=== PATIENT | male | born 1960 | race Caucasian/White ===

== ENCOUNTER 2020-05-27 08:20 | Day surgery (SDC) | payer OTHER ==
[~2020-05-27] VITALS: Ht 188 cm; Wt 95.5 kg
[~2020-05-27 08:20] MED LIST: ACETAMINOPHEN325 M1 PO; CRESTOR10 MG PO; CYCLOBENZAPRINE10 MG PO; DAILY VITAMIN1 EAC2 PO; NAPROSYN500 MG PO; PRINIVIL20 MG PO
[2020-05-27] MEDS ORDERED: DAILY MULTIPLE1 EACH PO (08:52)
[2020-05-27] MEDS ORDERED: TURMERIC 500 M1 EACH PO (08:53)
--- NOTE | 2020-05-27 12:53 | NUR ---
05/27/20 Rhonda3 Emily Prabhakar 1250- PT ARRIVES TO PACU NONAROUSABLE TO NOXIOUS STIMULI WITH AN OPA IN PLACE. PT NEEDING A JAW LIFT TO CLEAR SNORING. RESP EVEN AND UNLABORED. OXYGEN SAT HIGH 90'S TO 100% ON 10L VIA MASK.
--- NOTE | 2020-05-27 13:41 | NUR ---
1330: PATIENT BACK IN DAY SURGERY ROOM FROM PACU. DENIES PAIN. DENIES NAUSEA. LEFT ABDOMINAL DRESSING CDI. IV SITE WNL. SCDs ON. TOLERATING WATER. DECLINES SOMETHING TO EAT AT THIS TIME. AT BEDSIDE. CALL LIGHT WITHIN REACH.
[2020-05-27] MEDS ORDERED: HYDROCODON-ACE1 EAC8 PO (13:55)
--- NOTE | 2020-05-27 14:33 | NUR ---
PATIENT TOLERATED APPLESUACE. VS CHECKED. DISCHARGE INSTRUCTIONS GIVEN TO PATIENT AND . PATIENT ASSISTED OOB AND TO WALK ABOUT ROOM. GAIT STEADY. PATIENT GETTING DRESSED WITH HELP FROM .
--- NOTE | 2020-05-27 14:52 | NUR ---
1437: STAND BY ASSIST WITH PATIENT TO BATHROOM. VOID WITHOUT DIFFICULTY. GAIT STAEDY TO AND FROM BATHROOM. IV DC'D WNL. TIP INTACT. DRESSING APPLIED. 1443: PATIENT DISCHARGED TO HOME WITH VIA WHEELCHAIR.
--- NOTE | 2020-05-28 07:45 | OR ---
[facility] [address], [place] [address] Signed DATE OF OPERATION: 05/27/2020 SURGEON: Mayo Christy MD PREOPERATIVE DIAGNOSIS: Incarcerated left spigelian hernia (8 mm). POSTOPERATIVE DIAGNOSIS: Incarcerated left spigelian hernia (8 mm). PROCEDURE: Primary left spigelian herniorrhaphy with intraabdominal Ventralex mesh (4.3 cm). ESTIMATED BLOOD LOSS: None. INDICATIONS: Alexi is a 59-year-old gentleman, I have known for many years. He actually came to me previously for groin hernia. On this occasion, he has had bulging in the left abdominal wall. It is just lateral to his rectus sheath. 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 He said it has been bothering up, he wanted to have it evaluated. Ultrasound and the CT scan confirmed the hernia. The fascial defects around 8 mm in diameter. The herniated fat is around 55 mm. I had met with Alexi in the office and I explained to him the nature of the spigelian hernia. I reviewed with him the difference between a primary suture repair and a mesh repair. He understands there is risk including, but not limited to bleeding, infection, scarring, change in contour of the skin, damage to bowel, infection of mesh requiring removal, recurrent hernias, and chronic pain. He had expressed understanding and wished to proceed. DESCRIPTION OF PROCEDURE: I met with Alexi and his in our preop area. We could see and feel the subcutaneous bulge. We marked that appropriately on the left abdominal wall. After this, Alexi was taken into the operating room and placed in the supine position under general endotracheal tube anesthesia. Appropriate padding and monitoring were placed. He had been given preoperative antibiotics along with subcutaneous heparin. SCDs were utilized. He was prepped and draped in the usual sterile fashion. We made a standard transverse incision overlying the area. It was carried down through the tissues bluntly and with the cautery. As it was common with spigelian hernias, they never come all the way through the abdominal wall. We opened the external oblique in the direction of the muscle fibers using a muscle-splitting technique as it would for an appendectomy and Electronically Signed By: MAYO CHRISTY MD 05/28/20 0745 PATIENT NAME: ALEXI MART OPERATIVE REPORT DATE OF : 64 REPORT #: [id number] PHYSICIAN: MAYO CHRISTY MD PCP: ROD VANESSA MD REPORT IS CONFIDENTIAL AND NOT TO BE RELEASED WITHOUT AUTHORIZATION [facility] [address], [place] [address] Signed underneath it was the herniated fat. We worked our way down to the neck of the hernia as it went through the fascial defect of the abdominal wall. The hernia sac and the fat were excised and passed off the field. Again, it is right on the lateral edge of the rectus sheath consistent with his spigelian hernia. The fascial defect was around 8 mm in diameter. Consequently, we chose our 4.3 cm round Ventralex mesh and we placed inside the abdominal wall and brought up, flushed against the posterior abdominal wall. We could see the omentum in the sigmoid colon underneath as we worked. We closed the fascial defect transversely with a running #1 Prolene suture. Several passes of the suture went through the tab on the mesh to help hold it in place. The tab was then cut flush with the abdominal wall. The abdominal wall was then infiltrated local anesthetic including subcutaneous tissues. The wound was irrigated and suctioned out until clear. We closed the external oblique with a running 2-0 PDS suture. We closed Yeyo's fascia with a running 4-0 Monocryl suture. The dermis was reapproximated with interrupted 3-0 subcuticular Monocryl sutures. The skin edges were reapproximated with a running 5-0 fast absorbing plain gut suture. Dry gauze and tape were then applied. Alexi was awakened from his anesthesia, extubated in the OR, and taken to recovery room in stable condition. Mayo Christy MD ALB/MODL /[id number] cc: MD Mayo Rivera MD Copies: ROD VANESSA MD, ANDREW L MD ~ Electronically Signed By: MAYO CHRISTY MD 05/28/20 0745 PATIENT NAME: ALEXI MART OPERATIVE REPORT DATE OF : 64 REPORT #: [id number] PHYSICIAN: MAYO CHRISTY MD PCP: ROD VANESSA MD REPORT IS CONFIDENTIAL AND NOT TO BE RELEASED WITHOUT AUTHORIZATION
== END 2020-05-27 14:43 | disposition home or self-care (01) ==
LOC: DS 08:20
PROVIDERS: ATTEND Colon & Rectal Surgery
PROC: 0WUF0JZ Supplement Abdominal Wall with Synthetic Substitute, Open Approach (ICD-10-PCS; principal; 2020-05-27 09:00)
DX: K43.6 Other and unspecified ventral hernia with obstruction, without gangrene (principal); E78.5 Hyperlipidemia, unspecified
CPT/HCPCS: 00752; C1781; J0330; J0690; J1100; J1644; J1885; J2250; J2405; J2704; J2765; J3010; J7121

== ENCOUNTER 2022-08-28 13:31 | Emergency (ER) | payer OTHER ==
[~2022-08-28] VITALS: Ht 188 cm; Wt 95.2 kg
[~2022-08-28 13:31] MED LIST changes: +DAILY MULTIPLE1 EACH PO; +HYDROCODON-ACE1 EAC8 PO; +TURMERIC 500 M1 EACH PO
[2022-08-28 15:02] VITALS: BP 133/81
== END 2022-08-28 15:02 | disposition home or self-care (01) ==
LOC: ED 13:31
DX: S61.012A Laceration without foreign body of left thumb without damage to nail, initial encounter (principal); W29.8XXA Contact with other powered hand tools and household machinery, initial encounter; I10 Essential (primary) hypertension; E78.5 Hyperlipidemia, unspecified; Z87.891 Personal history of nicotine dependence; Z79.899 Other long term (current) drug therapy

== ENCOUNTER 2023-03-28 11:21 | Emergency (ER) | payer OTHER ==
[~2023-03-28] VITALS: Ht 188 cm; Wt 95.2 kg
[2023-03-28 12:27] VITALS: BP 110/77
== END 2023-03-28 12:27 | disposition home or self-care (01) ==
LOC: ED 11:21
DX: S61.311A Laceration without foreign body of left index finger with damage to nail, initial encounter (principal); W31.2XXA Contact with powered woodworking and forming machines, initial encounter; I10 Essential (primary) hypertension; E78.5 Hyperlipidemia, unspecified; Z87.891 Personal history of nicotine dependence; Z79.899 Other long term (current) drug therapy
CPT/HCPCS: 64450; 73140; 99283-25

== ENCOUNTER 2023-10-29 15:54 | Emergency (ER) | payer OTHER ==
[~2023-10-29] VITALS: Ht 188 cm; Wt 96.8 kg
--- NOTE | ~2023-10-29 | EKG ---
[facility] [address] [facility] [place] [facility] [place], [place] [address] Draft EK completed, results pending confirmation PATIENT NAME: ALEXI MART Electrocardiogram DATE OF : 64 PHYSICIAN: PRELIMINARY REPORT #: [id number] REPORT IS CONFIDENTIAL AND NOT TO BE RELEASED WITHOUT AUTHORIZATION
[2023-10-29] MEDS ORDERED: ondansetron HCL 4 MG/2 ML VIAL IV ONE (16:30)
[2023-10-29 16:51] LABS: BASOPHILS 0.3 % (0-2); HEMATOCRIT 43.2 % (35.0-50.0); HEMOGLOBIN 14.9 g/dL (12.0-18.0); LYMPHOCYTES 18.9 % (24-44); MCH 28.6 (27-36); MCHC 34.5 g/dl (30-36); MONOCYTES 6.5 % (0-12); NEUTROPHILS 73.3 % (39-80); PLATELET COUNT 226 K/uL (140-440); RDW 13.4 (10.5-15.0)
[2023-10-29 17:07] LABS: ALBUMIN 3.6 g/dL (3.4-5.0); ALBUMIN/GLOBULIN RATIO 1.16 (1.1-2.4); ANION GAP 8.5 (7-21); BILIRUBIN, TOTAL 2.2 ng/dL (0.2-1.0); BUN/CREATININE RATIO 14.28 (6.0-28.6); CALCIUM 8.3 mg/dL (8.5-10.1); CREATININE, SERUM 1.12 mg/dL (0.70-1.30); POTASSIUM 3.5 mmol/L (3.5-5.1); PROTEIN, TOTAL 6.7 g/dL (6.4-8.2)
[2023-10-29 17:25] LABS: BILIRUBIN, URINE NEGATIVE (negative); BLOOD/HGB, URINE NEGATIVE (Negative); KETONE, URINE NEGATIVE (Negative); LEUK ESTERASE, URINE NEGATIVE (negative); NITRITE, URINE NEGATIVE (negative)
[2023-10-29 19:33] VITALS: BP 124/72
== END 2023-10-29 19:38 | disposition home or self-care (01) ==
LOC: ED 15:54
PROVIDERS: Emergency Medicine
DX: R10.13 Epigastric pain (principal); I10 Essential (primary) hypertension; E78.5 Hyperlipidemia, unspecified; Z87.891 Personal history of nicotine dependence; Z79.899 Other long term (current) drug therapy
CPT/HCPCS: 36415; 74177; 80053; 81003; 83690; 84484; 85025; 93005; 93010; Q9967

== ENCOUNTER 2023-11-02 20:13 | Inpatient (IN) | payer OTHER ==
[~2023-11-02] VITALS: Ht 188 cm; Wt 93.2 kg
--- OUTSIDE RECORDS SUMMARY | 2023-11-02 20:19 | XMS ---
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 ELorena VISIT COUNT (12 MO.) 3 [facility] TOTAL 3 NOTE: Visits indicate total known visits. ED/UCC VISIT TRACKING (12 MO.) 11/02/2023 20:13 [facility] TYPE: Emergency COMPLAINT: - ABD PAIN 10/29/2023 15:54 [facility] [place] TYPE: Emergency COMPLAINT: - ABDOMINAL PAIN/SOB DIAGNOSES: - Epigastric pain - Essential (primary) hypertension - Hyperlipidemia, unspecified - Other jail (current) drug therapy - Personal history of nicotine dependence 03/28/2023 11:22 [facility] [place] TYPE: Emergency COMPLAINT: - L INDEX FINGER LACERATION DIAGNOSES: - Contact with powered woodworking and forming machines, initial encounter - Essential (primary) hypertension - Hyperlipidemia, unspecified - Laceration without foreign body of left index finger with damage to nail, initial encounter - Laceration without foreign body of left index finger without damage to nail, initial encounter - Other rodent exterminator (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
[2023-11-02] MEDS ORDERED: FAMOTIDINE 20 MG/ 2 ML VIAL IV ONE (21:00)
[2023-11-02] MEDS ORDERED: KETOROLAC TROMETHAMINE 30 MG/ML VIAL IV ONE (21:00)
[2023-11-02 21:01] LABS: BASOPHILS 0.2 % (0-2); EOSINOPHILS 1.6 % (0-6); HEMOGLOBIN 15.1 g/dL (12.0-18.0); LYMPHOCYTES 8.8 % (24-44); MCH 28.7 (27-36); MCHC 34.3 g/dl (30-36); MCV 83.8 fl (81-99); MONOCYTES 8.5 % (0-12); NEUTROPHILS 80.9 % (39-80); PLATELET COUNT 195 K/uL (140-440); RBC 5.24 M/ul (4.3-5.7); RDW 13.4 (10.5-15.0)
[2023-11-02 21:14] LABS: ALBUMIN 3.2 g/dL (3.4-5.0); ALBUMIN/GLOBULIN RATIO 0.86 (1.1-2.4); ALKALINE PHOSPHATASE 438 U/L (46-116); ALT (SGPT) 367 U/L (14-59); ANION GAP 12.4 (7-21); AST (SGOT) 227 U/L (15-37); BILIRUBIN, TOTAL 1.9 ng/dL (0.2-1.0); BUN/CREATININE RATIO 8.18 (6.0-28.6); CALCIUM 9.2 mg/dL (8.5-10.1); CARBON DIOXIDE 27 mmol/L (21-32); CHLORIDE 101 mmol/L (98-107); GLOMERULAR FILTRATION RATE,EST 76 mL/min (>60); POTASSIUM 3.4 mmol/L (3.5-5.1); PROTEIN, TOTAL 6.9 g/dL (6.4-8.2); UREA NITROGEN 9 mg/dL (7-18)
[2023-11-02 22:13] LABS: BILIRUBIN, URINE NEGATIVE (negative); BLOOD/HGB, URINE TRACE-I (Negative); KETONE, URINE NEGATIVE (Negative); LEUK ESTERASE, URINE NEGATIVE (negative); NITRITE, URINE NEGATIVE (negative)
[2023-11-02 22:15] LABS: BACTERIA, URINE RARE /hpf (negative); CASTS, URINE NONE SEEN \\lpf; CRYSTALS, URINE NONE SEEN (0-1+); EPITHELIAL CELLS, URINE SQUAMOUS 1+ /lpf (0-1+); REFLEX CULTURE, URINE No (No)
[2023-11-02 22:16] LABS: COLLECTION TYPE, URINE CLEAN CATCH
[2023-11-02] MEDS ORDERED: DEXTROSE 5% 100 ML IV ONE (22:27)
[2023-11-02] MEDS ORDERED: ondansetron HCL 4 MG/2 ML VIAL IV PRN (22:30)
[2023-11-02] MEDS ORDERED: KETOROLAC TROMETHAMINE 30 MG/ML VIAL IV PRN (22:30)
[2023-11-02] MEDS ORDERED: MORPHINE SULFATE 10 MG/ML VIAL IV PRN (22:30)
[2023-11-02] MEDS ORDERED: PIPERACILLIN/TAZOBACTAM 3.375 GM in DEXTROSE 5% 100 ML IV ONE (22:30)
[2023-11-02] MEDS ORDERED: LACTATED RINGER'S 1,000 ML IV SCH (22:30)
[2023-11-02] MEDS ORDERED: LACTATED RINGER'S 1,000 ML IV ONE (23:15)
[2023-11-02 23:30] LABS: LACTIC ACID, BLOOD 0.6 mmol/L (0.4-2.0)
[2023-11-03] VITALS (11 sets, daily range): BP systolic 111–144; BP diastolic 52–72
--- NOTE | 2023-11-03 00:43 | NUR ---
pt arrived to ms floor from ed, ambulated self to bathroom and voided unmeasured amount and back in bed. admission completed, at bedside and preparing to go home following admission. primary rn michelle at bedside, pt oriented to poc, call light in reach.
--- NOTE | 2023-11-03 01:40 | NUR ---
Pt admitted to room 112 at 0043 from ED via stretcher, transferred self and walked to [facility], voided, back to bed. cooperative with admit quetions, vitals and assessments. NPO for probable am surgery, abd soft, tender MILAN, no c/o pain or n/v at thist time. Pt wearing contacts stated he is legally blind once he takes contacts off procedure and hosp routine explained, stated understanding. pleasant and cooperative
--- NOTE | 2023-11-03 03:02 | NUR ---
Resting, no s/sx distress, on room air. IVF infusing. NPO
[2023-11-03 05:16] LABS: HEMOGLOBIN 14.1 g/dL (12.0-18.0); MCH 28.3 (27-36); RDW 13.6 (10.5-15.0)
[2023-11-03 05:19] LABS: BASOPHILS 0.1 % (0-2); EOSINOPHILS 1.6 % (0-6); HEMATOCRIT 41.4 % (35.0-50.0); LYMPHOCYTES 9.3 % (24-44); MCV 83.5 fl (81-99); MONOCYTES 11.2 % (0-12); NEUTROPHILS 77.8 % (39-80); PLATELET COUNT 188 K/uL (140-440); RBC 4.96 M/ul (4.3-5.7)
[2023-11-03 05:31] LABS: ALBUMIN 2.9 g/dL (3.4-5.0); ALBUMIN/GLOBULIN RATIO 0.85 (1.1-2.4); ANION GAP 12.8 (7-21); BUN/CREATININE RATIO 9.25 (6.0-28.6); CALCIUM 8.7 mg/dL (8.5-10.1); CREATININE, SERUM 1.08 mg/dL (0.70-1.30); POTASSIUM 3.8 mmol/L (3.5-5.1); PROTEIN, TOTAL 6.3 g/dL (6.4-8.2)
[2023-11-03] MEDS ORDERED: PIPERACILLIN/TAZOBACTAM 3.375 GM VIAL ONE (05:33)
--- NOTE | 2023-11-03 05:49 | NUR ---
Awake, was cooperative with vitals and assessment. IVF infusing RW, c/o epigastric pain, medicated with Toradol 30mg IV, repositions self in bed, up to BRp earlier and voided QS, NPO, tolerating well.
[2023-11-03] MEDS ORDERED: PIPERACILLIN/TAZOBACTAM 3.375 GM in DEXTROSE 5% 100 ML IV SCH (06:00)
--- NOTE | 2023-11-03 07:56 | NUR ---
Pt report received from DAMON Park at 0710 hours. Pt is resting supine in bed, HOB elevated, side rails up x2, call light in reach. Pt's breathing is regular, even, and non-labored, his cheeks appear flushed and he seems to be asleep. Pt awakens easily to voice, denies needs at this time. States that he was cold last night so they turned the heat up, but now he's too warm and requests the heat be turned down some. This was done. Advised pt to use his call light if he has any needs before I return for assessment.
[2023-11-03] MEDS ORDERED: FAMOTIDINE 20 MG/ 2 ML VIAL IV SCH (09:00)
--- NOTE | 2023-11-03 10:22 | NUR ---
Dr. Mayen in with pt at about 1000 hours to discuss his findings after reviewing his chart. Received verbal orders from Dr. Mayen and was requested to input them: instruct pt to use incentive spirometer 10x q1h while awake to prevent atelectasis. Use SCDs bilateral LE while in bed. Ambulate often. Clear liquid diet, low fat, advance diet as tolerated to full liquid low fat. Continue fluids at ordered rate (LR @ 85/hr), continue pain management orders, continue pepcid and zosyn as ordered, patient may shower if desired. Verbal orders repeated back and confirmed before entering.
--- NOTE | 2023-11-03 11:13 | NUR ---
SCD'S placed on pt's BLE and turned on. IS given to pt and pt was instructed on its use and when/how often to use it, pt performed return demonstration. Discussed updated orders from Dr. Mayen with pt who verbalized understanding and understands to use the call light when he wants to get up to walk, or to shower. Call light in reach. Ice water provided to patient.
[2023-11-03] MEDS ORDERED: LISINOPRIL10 MG PO (14:44)
[2023-11-03] MEDS ORDERED: ROSUVASTATIN CA10 MG PO (14:45)
--- NOTE | 2023-11-03 16:33 | NUR ---
In with pt for hourly rounds. Pt is awake, sitting up in bed, using his laptop. When asked how his pain is, he states that he is starting to feel some rumbling in his tummy, like nausea. He accepted the offer for zofran. He stated that he hasn't had any increased pain after having had low fat clear liquids for lunch and is looking forward to advancing his diet to low fat full liquid diet for dinner, but he did start having a little bit of "tummy rumbling" and later stated it was like he was hungry but not really. Pt denies further needs at this time. Call light in reach, side rails up x2, SCDs on.
--- NOTE | 2023-11-03 18:43 | NUR ---
Pt ambulating hallway, unassisted.
--- NOTE | 2023-11-03 19:48 | NUR ---
Up for showering. no c/o pain, independent in room
--- NOTE | 2023-11-03 20:10 | NUR ---
CALL LIGHT ANSWERED. PATIENT DONE SHOWER. BATHROOM WIPED DRY. BED LINEN CHANGED. PATIENT IS INDEPENDENT SITTING ON THE COUCH BY THE WINDOW. PATIENT IS ON THE PHONE TALKING.
--- NOTE | 2023-11-03 20:50 | NUR ---
ambulated in room after shower, denies c/o abd pain, on room air, coop with assessments and vitals. ivf infusing RW, SL LW patent.
[2023-11-04] VITALS (10 sets, daily range): BP systolic 114–135; BP diastolic 57–75
--- NOTE | 2023-11-04 02:39 | NUR ---
Resting, eyes closed, no s/sx distress, IVF infusing.
--- NOTE | 2023-11-04 05:56 | NUR ---
Pt awake, up to brp w/o assist, voided QS. IVF infusing, no c/o adverse reaction to IV abx. toleraing liquids well, no n/v, no c/o abd pain at all this shift. turns and repositions self in bed
--- NOTE | 2023-11-04 07:05 | NUR ---
REPORT RECEIVED FROM ACCT EXEC RN LARRY. PATIENT IS SITTING UPRIGHT IN BED AND ON THEIR COMPUTER. PATIENT STATED NO NEEDS AT THIS TIME, CALL LIGHT AND PERSONAL BELONGINGS ARE WITHIN REACH.
--- NOTE | 2023-11-04 07:48 | NUR ---
Board has been updated and call light has been placed within reach. No requests from patient at this [facility]
--- NOTE | 2023-11-04 09:30 | NUR ---
0900 MEDICATIONS ADMINISTERED PER THE EMAR. FULL ASSESSMENT COMPLETE AND DOCUMENTED IN THE CHART. PATIENT IS AT THE BEDSIDE. PATIENT IS ALERT AND ORIENTED TIMES FOUR. CARDIAC WITH NORMAL S1 AND S2 ON AUSCULTATION. RADIAL PULSES ARE STRONG BILATERALLY. SENSATION INTACT WITH NO COMPLAINTS OF NUMBNESS AND TINGLING. SCABS NOTED ON BILATERAL KNEES. BRUISES AND SCARS NOTED ON THE BILATERAL LOWER EXTREMITIES. LUNG SOUNDS ARE CLEAR IN ALL LUNG KIRAN BILATERALLY AND THE PATIENT IS ON ROOM AIR. BOWEL TONES ARE ACTIVE IN ALL FOUR QUADRANTS. PATIENT IS ON A FULL LIQUID AND LOW FAT DIET. IV SITE IN THE RIGHT FOREARM IS CLEAN, DRY, AND INTACT. IV FLUSHED WITH 10 ML NORMAL SALINE. IV IN THE LEFT FOREARM IS CLEAN, DRY, AND INTACT. IV IN THE LEFT FOREARM FLUSHED WITH 20 ML NORMAL SALINE. PATIENT LAST BOWEL MOVEMENT WAS 11/02/23. PATIENT STATED NO FURTHER NEEDS AT THIS TIME. CALL LIGHT AND PERSONAL BELONGINGS ARE WITHIN REACH.
--- NOTE | 2023-11-04 09:49 | NUR ---
PATIENT ALERT AND ORIENTED. SPOUSE AT BEDSIDE. VERIFIED DEMOGRAPHICS. PATIENT LIVES WITH IN SINGLE LEVEL HOME, 2 STEPS TO GET INSIDE. DENIES ANY DME. CONTINUES WITH ABILITY TO DRIVE SELF. 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 IS ALSO ABLE TO ASSIST WITH TRANSPORTATION IF NEEDED. PATIENT DENIES FINANCIAL ISSUES REGARDING UTILITES, FOOD OR MEDICATIONS. IS CONCERNED ABOUT RECORDS BEING SENT TO DR. ARELLANO. REQUESTS RECORDS BE SENT TO DR. [place]LLANO AT [place]. PATIENT AND PLAN ON HIS RETURN HOME WHEN IA'D.
--- NOTE | 2023-11-04 10:19 | NUR ---
PATIENT IS SITTING UPRIGHT IN THE BED AND IS ON THEIR COMPUTER. PATIENT IS AT THE BEDSIDE. PATIENT AND HIS STATED NO FURTHER NEEDS AT THIS TIME. CALL LIGHT AND PERSONAL BELONGINGS ARE WITHIN REACH.
--- NOTE | 2023-11-04 11:22 | NUR ---
PATIENT IS SITTING UPRIGHT IN BED AND TALKING ON THE PHONE. PATIENT WITH HIS AT THE BEDSIDE. CALL LIGHT AND PERSONAL BELONGINGS WITHIN REACH.
--- NOTE | 2023-11-04 11:35 | NUR ---
medications reconciled
--- NOTE | 2023-11-04 12:41 | NUR ---
CRITICAL LAB RECEIVED FROM THE LAB. NOTIFIED AT THIS TIME.
--- NOTE | 2023-11-04 13:10 | NUR ---
PATIENT IS SITTING UPRIGHT IN BED AND SPEAKING WITH A VISITOR. CALL LIGHT AND PERSONAL BELONGINGS ARE WITHIN REACH.
--- NOTE | 2023-11-04 13:27 | NUR ---
VISITED DURING SPIRITUAL CARE ROUNDS. PT INIDICATED ROLFER HAD RECENTLY VISITED SO DID NOT HAVE IMMEDIATE NEEDS. PROVIDED HOSPITALITY, SUPPORTIVE PRESENCE. PT EXPRESSED APPRECIATION FOR VISIT.
--- NOTE | 2023-11-04 13:45 | NUR ---
1400 MEDICATIONS ADMINISTERED PER THE EMAR. PATIENT WITH NO COMPLAINTS OF PAIN AT THIS TIME. LR IS INFUSING AT 85 ML/HR IN THE IV IN THE RIGHT FOREARM. IV DRESSING IN THE RIGHT FOREARM IS CLEAN, DRY, AND INTACT. IV IN THE LEFT FOREARM FLUSHED WITH 20 ML NORMAL SALINE. IV DRESSING IN THE LEFT FOREARM IS CLEAN, DRY, AND INTACT. HAT IN THE TOILET EMPTIED OF 700 ML OF YELLOW URINE. PATIENT REMAINS INDEPENDENT. PATIENT IS SITTING UPRIGHT IN THE CHAIR WITH NO NEEDS AT THIS TIME, CALL LIGHT AND PERSONAL BELONGINGS ARE WITHIN REACH.
[2023-11-04] MEDS ORDERED: CEFAZOLIN SODIUM 2 GM/20 ML SYR IV SCH (14:00)
[2023-11-04] MEDS ORDERED: CEFOXITIN SODIUM 2 GM in DEXTROSE 5% 100 ML IV SCH (14:00)
--- NOTE | 2023-11-04 14:12 | NUR ---
[place] [facility] [place] CRITERIA [facility] OBS TO INPT 11/03/23 @ 1022 ORDER MATCHES REG WILL SEND CLINICAL FOR AUTH REVIEW DISCHARGE TO HOME WHEN STABLE 11/05/23
--- NOTE | 2023-11-04 14:49 | NUR ---
PATIENT IS SITTING UPRIGHT IN THE BED AND ON THEIR PERSONAL COMPUTER. LR IS INFUSING IN THE RIGHT FOREARM AT 85 ML/HR. PATIENT URINAL DUMPED OF 250 ML OF LIGHT YELLOW URINE. PATIENT STATED NO FURTHER NEEDS AT THIS TIME. CALL LIGHT AND PERSONAL BELONGINGS ARE WITHIN REACH.
--- NOTE | 2023-11-04 20:04 | NUR ---
PT AMBULATING IN ROOM, ON ROOM AIR, CLEAR LUNGS, ABD SLIGHT DISTENTION MILAN, HAD SMEAR OF BM. NO EMESIS. IVF INFUSING RFA, IV SL LFA PATENT. IN CHAIR, LEGS ELEVATED, NO C/O ABD PAIN AT THIST HAY
--- NOTE | 2023-11-04 20:50 | NUR ---
PT UP AMBULATING WITH . NO NEEDS, NO SOB NOTED.
--- NOTE | 2023-11-04 22:31 | NUR ---
In bed, awakens easily, no c/o abd pain or n/v. IVF infusing, cooperativ and denies adverse raction to IV abx. tolerating sips of fluids. Independent in room, voidinf QS clear urine
[2023-11-05] VITALS (13 sets, daily range): BP systolic 104–137; BP diastolic 61–75
--- NOTE | 2023-11-05 00:39 | NUR ---
resting, eyes closed, IVF infusing, no s/sx distress, independent in room, voiding QS. turs and repositions self in bed
--- NOTE | 2023-11-05 02:56 | NUR ---
Pt resting, eyes closed, IVF infusing, no c/o or s/sx pain or distress, up to brp, voiding QS, independent inroom.
--- NOTE | 2023-11-05 04:25 | NUR ---
awakes esily, no c/o pain, IVF infusing. abd mild distention, ramiro, had bm's t begining of shift. Independent in room, voiding QS, tolerting full liquid low fat diet, Diet updated to soft low fat
[2023-11-05 05:20] LABS: BASOPHILS 0.3 % (0-2); EOSINOPHILS 4.6 % (0-6); HEMOGLOBIN 13.2 g/dL (12.0-18.0); LYMPHOCYTES 16.1 % (24-44); MCH 28.9 (27-36); MCHC 34.6 g/dl (30-36); MCV 83.4 fl (81-99); MONOCYTES 9.3 % (0-12); NEUTROPHILS 69.7 % (39-80); PLATELET COUNT 205 K/uL (140-440); RBC 4.55 M/ul (4.3-5.7); RDW 13.3 (10.5-15.0)
[2023-11-05 05:35] LABS: ALBUMIN 2.5 g/dL (3.4-5.0); ALBUMIN/GLOBULIN RATIO 0.68 (1.1-2.4); ANION GAP 11.6 (7-21); BILIRUBIN, TOTAL 1.5 ng/dL (0.2-1.0); POTASSIUM 3.6 mmol/L (3.5-5.1); PROTEIN, TOTAL 6.2 g/dL (6.4-8.2)
--- NOTE | 2023-11-05 07:00 | NUR ---
REPORT RECEIVED FROM DIVISION MERCHANDISE MANAGER RN LARRY. PATIENT IS LYING IN BED WITH THE HOB ELEVATED. PATIENT IS LOOKING ON THEIR PHONE. PATIENT REMAINS INDEPENDENT IN THE ROOM. CALL LIGHT AND PERSONAL BELONGINGS ARE WITHIN REACH.
--- NOTE | 2023-11-05 07:46 | NUR ---
Board has been updated and call light has been placed within reach. No request from patient at this time
[2023-11-05] MEDS ORDERED: lisinopriL 10 MG TAB PO SCH (09:00)
--- NOTE | 2023-11-05 09:23 | NUR ---
PT SITTING UP IN BED WITH CALL LIGHT WITHIN REACH. NO REQUESTS AT THIS TIME. ASSESSMENT COMPLETE.
--- NOTE | 2023-11-05 10:12 | NUR ---
PATIENT NOW ON A SOFT, LOW-FAT DIET. I MET WITH HIM TO SEE HOW HE IS DOING. HE HAS BEEN GETTING LIQUIDS WITH SOME FAT-FREE YOGURT ONLY. I CHANGED HIS DIET ORDER IN [employer] TO REPRESENT LOW-FAT, SOFT (LOW-FIBER FOR THE MOST PART). HE IS READY TO EAT SOME SOLID FOOD. PROVIDED HIM A HANDOUT ON FAT RESTRICTED DIET FROM THE NUTRITION CARE MANUAL. EXPLAINED THE APPROPRIATE FOODS THAT HE SHOULD EAT FROM EACH FOOD GROUP. HIS WASN'T HERE BUT HE WILL GIVE HER THE HANDOUT TO TAKE HOME. HE HAS GOOD UNDERSTANDING AND SHOULD DO WELL. MY NAME AND OFFICE # ARE ON THE HANDOUT IN CASE FURTHER QUESTIONS ARISE.
--- NOTE | 2023-11-05 10:34 | NUR ---
VISITED DURING SPIRITUAL CARE ROUNDS. PT IN CONFERENCE WITH DID NOT INTERRUPT. PROVIDED PRAYER.
--- NOTE | 2023-11-05 10:56 | NUR ---
PT SITTING IN BED AND IS ON HIS COMPUTER. NO REQUESTS AT THIS TIME. PT UP AMBULATING IN HIS ROOM, TOLERATING WELL.
--- NOTE | 2023-11-05 12:57 | NUR ---
PATIENT IS SITTING UPRIGHT IN BED. LUNCH TRAY REMOVED FROM THE PATIENTS ROOM AT THIS TIME. PATIENT WITH NO COMPLAINTS OF NAUSEA AT THIS TIME. PATIENT DIET ADVANCED TO REGULAR. PATIENT STATED NO FURTHER NEEDS AT THIS TIME, CALL LIGHT AND PERSONAL BELONGINGS ARE WITHIN REACH.
--- NOTE | 2023-11-05 13:38 | NUR ---
PATIENT IS AMBULATING IN THE ROOM INDEPENDENTLY AT THIS TIME. CALL LIGHT AND PERSONAL BELONGINGS ARE WITHIN REACH.
--- NOTE | 2023-11-05 15:00 | NUR ---
PATIENT IS AMBULATING IN THE HALLWAY WITH THE WORSTED WINDER AT THIS TIME.
--- NOTE | 2023-11-05 16:04 | NUR ---
Patient did four laps and I changed his linens. Patient requested a [place], nurse was notified and okayed patient to have [place] janet. No further requests from patient
--- NOTE | 2023-11-05 16:15 | NUR ---
PATIENT IS SITTING UPRIGHT IN THE CHAIR WITH BILATERAL LOWER EXTREMITIES ELEVATED. PATIENT IS SPEAKING ON THE PHONE AND LOOKING OUT THE WINDOW. PATIENT WITH CALL LIGHT AND PERSONAL BELONGINGS ARE WITHIN REACH.
--- NOTE | 2023-11-05 17:19 | NUR ---
PATIENT IS SITTING UPRIGHT IN THE CHAIR AND EATING DINNER. DAMON ALLEN STARTED A NEW BAG OF FLUID. LR IS INFUSING AT 85 ML/HR. PATIENT STATED NO NEEDS AT THIS TIME, CALL LIGHT AND PERSONAL BELONGINGS ARE WITHIN REACH.
--- NOTE | 2023-11-05 19:30 | NUR ---
REPORT RECIEVED FROM DAY SHIFT RN. PATIENT RESTING IN BED WATCHING TV. PATIENT DENIES NEEDS AT THIS TIME. CALL LIGHT IN REACH.
--- NOTE | 2023-11-05 21:21 | NUR ---
PATIENT RESTING IN BED. VS AND I&Os OBTAINED AND RECORDED. SCHEDULED MEDICATION ADMINISTERED, SEE MAR. IVs FLUSH WNL. PATIENT BOWEL TONES HYPER ACTIVE. PATIENT REPORTS 3/10 ABD PAIN, TENDER UPON PALPATION. PATIENT DENIES THE NEED FOR PAIN MEDICATION. NO FURTHER NEEDS AT THIS TIME. CALL LIGHT IN REACH.
--- NOTE | 2023-11-05 21:59 | NUR ---
PATIENT RESTING IN BED. SCHEDULED ABX INFUSING PER ORDER. PATIENT STATES "MY STOMACH DOESNT REALLY HURT, IT IS JUST UNEASY". PATIENT EDUCATED TO CALL IF HE NEEDS PAIN MEDICATION. PATIENT VERBALIZED UNDERSTANDING. PATIENT HAS NO FURTHER NEEDS. CALL LIGHT IN REACH.
--- NOTE | 2023-11-05 23:03 | NUR ---
PATIENT RESTING IN BED WITH EYES CLOSED. RESPIRATIONS EVEN AND UNLABORED. CALL LIGHT IN REACH.
[2023-11-06] VITALS (10 sets, daily range): BP systolic 112–120; BP diastolic 50–63
--- NOTE | 2023-11-06 00:55 | NUR ---
PATIENT IN ROOM WALKING BACK FROM BATHROOM. PATIENT DENIES NEEDS AT THIS TIME. CALL LIGHT IN REACH.
--- NOTE | 2023-11-06 03:40 | NUR ---
PATIENT RESTING IN BED ON BACK WITH EYES CLOSED. RESPIRATIONS EVEN AND UNLABORED. CALL LIGHT IN REACH.
--- NOTE | 2023-11-06 04:33 | NUR ---
IV PUMP ALARMING. NEW BAG IV FLUID INFUSING PER ORDER. VS AND I&Os OBTAINED AND RECORDED. ASSESSMENT COMPLETE. PATIENT REPORTS 05/08 ABD PAIN. PATIENT STATES "I GUESS I CAN'T CLASSIFY IT PAIN, IT IS MORE LIKE A DISCOMFORT". PATIENT DENIES THE NEED FOR PAIN MEDICATIONS AT THIS TIME. NO FURTHER NEEDS. CALL LIGHT IN REACH.
--- NOTE | 2023-11-06 05:46 | NUR ---
PATIENT RESTING IN BED WITH EYES CLOSED. AWAKENS EASILY. SCHEDULED IV ABX INFUSING PER ORDER. NO FURTHER NEEDS. CALL LIGHT IN REACH.
--- NOTE | 2023-11-06 07:00 | NUR ---
PATIENT IS SITTING UPRIGHT IN BED AND ON THEIR COMPUTER. PATIENT WITH NO COMPLAINTS OF PAIN WHEN ASKED BY RN. PATIENT STATED NO NEEDS AT THIS TIME. CALL LIGHT AND PERSONAL BELONGINGS ARE WITHIN REACH.
--- NOTE | 2023-11-06 07:54 | NUR ---
PATIENT IS SITTING UPRIGHT IN BED AND ON THEIR COMPUTER. FULL ASSESSMENT COMPLETE AND DOCUMENTED IN THE CHART. PATIENT WITH NO COMPLAINTS OF PAIN BUT REPORTS GENERALIZED DISCOMFORT. LUNG SOUNDS ARE CLEAR IN ALL LUNG KIRAN BILATERALLY AND THE PATIENT IS ON ROOM AIR. CARDIAC WITH NORMAL S1 AND S2. RADIAL PULSES ARE STRONG BILATERALLY. CAPILLARY REFILL IS LESS THAN 3 SECONDS IN BILATERAL LOWER EXTREMITIES. SENSATION INTACT WITH NO COMPLAINTS OF NUMBNESS AND TINGLING. BOWEL TONES ARE ACTIVE IN ALL QUADRANTS. PATIENT IS ON A REGULAR DIET. PATIENT LAST BOWEL MOVEMENT WAS 11/05/23. SKIN WITH SCATTERED BRUISING, SCABS ON THE KNEES, AND BILATERALY SCARS ON THE LOWER EXTREMITIES. IV ON THE LEFT FOREARM FLUSHED WITH 10 ML NORMAL SALINE AND IS SALINE LOCKED. IV DRESSING IS CLEAN, DRY, AND INTACT. IV IN THE RIGHT FOREARM WITH LR INFUSING AT 85 ML/HR. IV IN THE RIGHT FOREARM FLUSHED WITH 10 ML NORMAL SALINE AND THE IV DRESSING IS CLEAN, DRY, AND INTACT. PATIENT IS INDEPENDENT IN THE ROOM. PATIENT STATED NO FURTHER NEEDS AT THIS TIME. CALL LIGHT AND PERSONAL BELONGINGS ARE WITHIN REACH.
[2023-11-06] MEDS ORDERED: FAMOTIDINE 20 MG TAB PO SCH (10:06)
--- NOTE | 2023-11-06 11:30 | NUR ---
PATIENT IS SITTING UPRIGHT IN THE CHAIR WITH THE BILATERAL LOWER EXTERMITIES ELEVATED. PATIENT WITH LR INFUSING AT 85 ML/HR. CALL LIGHT AND PERSONAL BELONGINGS ARE WITHIN REACH.
--- NOTE | 2023-11-06 12:13 | NUR ---
Patient called the nurses station to report he is bleeding. This RN to room to assess patient. Patient bleeding from IV site, end piece of catheter popped iv catheter closest to patient. IV tubing replaced, catheter patent, fluids restarted. Patient provided with clean gown. No further needs at this time, personal supplies within reach.
--- NOTE | 2023-11-06 12:26 | NUR ---
PATIENT IS SITTING UPRIGHT IN THE CHAIR WITH HIS LUNCH TRAY PLACED IN FRONT OF HIM. PATIENT WITH NO COMPLAINTS OF PAIN AT THIS TIME. PATIENT STATE DNO FURTHER NEEDS AT THIS TIME, CALL LIGHT AND PERSONAL BELONGINGS ARE WITHIN REACH.
[2023-11-06] MEDS ORDERED: CEFEPIME HCL/D5W 2 GM/100 ML PIGGYBACK IV SCH (14:00)
[2023-11-06] MEDS ORDERED: CEFEPIME HCL/D5W 1 GM/100 ML PIGGYBACK IV SCH (14:00)
--- NOTE | 2023-11-06 14:11 | NUR ---
PATIENT IS SITTING UPRIGHT IN THE CHAIR AND FACING THE WINDOW. PATIENT IS ON HIS COMPUTER AT THIS TIME. PATIENT WITH NO COMPLAINTS OF PAIN. IV IN THE RIGHT FOREARM FLUSHED WITH 10 ML NORMAL SALINE. IV CEFEPIME INFUSION STARTED AT THIS TIME. PATIENT STATED NO NEEDS, CALL LIGHT AND PERSONAL BELONGINGS ARE WITHIN REACH.
--- NOTE | 2023-11-06 14:17 | NUR ---
VISITED DURING SPIRITUAL CARE ROUNDS. LISTENED EMPATHETICALLY PT EXPRESSED CONCERN REGARDING BUSINESS INTERRUPTION. PROVIDED SUPPORTIVE PRESENCE, HOSPITALITY, PRAYER.
--- NOTE | 2023-11-06 16:30 | NUR ---
PATIENT IS STANDING INDEPENDENTLY IN THE ROOM. PATIENT STATED NO PAIN RATHER GAS DISCOMFORT IN THE ABDOMEN. PATIENT STATED NO NEEDS AT THIS TIME. CALL LIGHT AND PERSONAL BELONGINGS ARE WITHIN REACH.
--- NOTE | 2023-11-06 17:14 | NUR ---
PATIENT IS SITTING UPRIGHT IN THE CHAIR AND EATING DINNER. PATIENT CALL LIGHT AND PERSONAL BELONGINGS ARE WITHIN REACH.
--- NOTE | 2023-11-06 19:19 | NUR ---
REPORT RECIEVED FROM DAY SHIFT RN. PATIENT RESTING IN CHAIR WITH IN ROOM. PATIENT DENIES PAIN AT THIS TIME. PATIENT DENIES CURRENT NEEDS. CALL LIGHT IN REACH.
--- NOTE | 2023-11-06 20:14 | NUR ---
PATIENT RESTING IN BED. SCHEDULED MEDICATION ADMINSITERED. NEW BAG IV ABX INFUSING PER ORDER. VS AND I&Os OBTAINED AND RECORDED. BOTH IVs FLUSH WNL. PATIENT REPORTS 5/10 ABD PAIN. PATIENT UP TO AMBULATE ONE LAP AROUND THE FLOOR. PATIENT BACK TO ROOM TO USE THE BATHROOM. SMALL LIQUID STOOL BM NOTED. PATIENT BACK TO BED. BOWEL TONES ACTIVE IN ALL FOUR QUADRANTS. MD MADE AWARE OF PATIENTS PAIN. PATIENT REFUSING MORPHINE AT THIS TIME. PATIENT HAS NO FURTHER NEEDS. CALL LIGHT IN REACH.
--- NOTE | 2023-11-06 20:17 | NUR ---
call light answered, pt in bed, warm blanket provided. sig other also at bedside. call light in reach. no additional needs or concerns. primary rn remains in room.
[2023-11-06] MEDS ORDERED: KETOROLAC TROMETHAMINE 15 MG/ML VIAL IV PRN (21:00)
--- NOTE | 2023-11-06 21:21 | NUR ---
PRN TORADOL GIVEN-SEE EMAR. IV SITE WNL.pt RESTING IN BED, BATHROOM HAT EMPTIED AND DOCUMENTED. REMAINS AT BEDSIDE, CALL LIGHT IN REACH.
--- NOTE | 2023-11-06 21:53 | NUR ---
PATIENT RESTING IN BED WITH AT BEDSIDE. PATIENT STATES "I THINK THE PAIN MEDS ARE STARTING TO KICK IN, IT IS NOW A 5/". PATIENT DENIES NEEDS AT THIS TIME. CALL LIGHT IN REACH.
--- NOTE | 2023-11-06 23:42 | NUR ---
PATIENT RESTING IN BED ON BACK WITH EYES CLOSED. RESPIRATIONS EVEN AND UNLABORED. CALL LIGHT IN REACH.
--- NOTE | 2023-11-07 01:40 | NUR ---
PATIENT RESTING IN BED. SCHEDULED IV ABX INFUSING PER ORDER. PATIENT DENIES NEEDS AT THIS TIME, BUT REQUESTING PAIN MEDICATION WHEN IT IS AVAILABLE. CALL LIGHT IN REACH.
--- NOTE | 2023-11-07 03:03 | NUR ---
PATIENT RESTING IN BED, AWAKE. REPORTING 7/10 PAIN. PATIENT STATES "IT IS LIKE A SHARP SUDDEN PAIN THAT FADES BACK TO LESS PAIN. IT WILL SHOOT UP TO A 9/10 AND THEN FADE BACK DOWN TO A 7/10. IT IS IN THE CENTER OF MY STOMACH, BELOW THE RIBCAGE, AND TO MY BACK". PRN PAIN MEDICATION ADMINSITERED, SEE MAR. BOWEL TONES HYPER ACTIVE. PATIENT DENIES FURTHER NEEDS. CALL LIGHT IN REACH.
[2023-11-07 05:18] VITALS: BP 121/71
--- NOTE | 2023-11-07 05:22 | NUR ---
STRATEGIC SOURCING CONSULTANT OBTAINED VITALS AND I&O. PT STATES NO FURTHER NEEDS AT THIS TIME. CALL LIGHT WITHIN REACH.
[2023-11-07 05:39] LABS: BASOPHILS 0.2 % (0-2); EOSINOPHILS 4.1 % (0-6); HEMATOCRIT 38.4 % (35.0-50.0); HEMOGLOBIN 12.8 g/dL (12.0-18.0); LYMPHOCYTES 14.7 % (24-44); MCHC 33.4 g/dl (30-36); MCV 83.8 fl (81-99); MONOCYTES 9.6 % (0-12); NEUTROPHILS 71.4 % (39-80); PLATELET COUNT 283 K/uL (140-440); RBC 4.58 M/ul (4.3-5.7); RDW 13.1 (10.5-15.0)
[2023-11-07 05:54] LABS: ALBUMIN 2.7 g/dL (3.4-5.0); ALBUMIN/GLOBULIN RATIO 0.77 (1.1-2.4); ALKALINE PHOSPHATASE 763 U/L (46-116); ALT (SGPT) 592 U/L (14-59); ANION GAP 11.8 (7-21); AST (SGOT) 684 U/L (15-37); BILIRUBIN, TOTAL 2.8 ng/dL (0.2-1.0); BUN/CREATININE RATIO 10.09 (6.0-28.6); CALCIUM 8.2 mg/dL (8.5-10.1); CARBON DIOXIDE 26 mmol/L (21-32); CHLORIDE 104 mmol/L (98-107); CREATININE, SERUM 1.09 mg/dL (0.70-1.30); GLOMERULAR FILTRATION RATE,EST 77 mL/min (>60); POTASSIUM 3.8 mmol/L (3.5-5.1); PROTEIN, TOTAL 6.2 g/dL (6.4-8.2); UREA NITROGEN 11 mg/dL (7-18)
--- NOTE | 2023-11-07 07:00 | NUR ---
REPORT RECEIVED FROM CYNDI JOSE
--- NOTE | 2023-11-07 07:07 | NUR ---
PT RESTING IN BED AWAKE AND ALERT, NO REQUESTS AT THIS TIME.
--- NOTE | 2023-11-07 07:58 | NUR ---
ASSESSMENT COMPLETE. PT STATES PAIN IS 2/10 AT THIS TIME, DENIES NEED FOR PAIN MEDICATION. UP AMBULAING IN ROOM, CALL LIGHT WITHIN REACH.
--- NOTE | 2023-11-07 08:01 | NUR ---
POWERHOUSE LABORER EMPTIED HAT IN TOILET AND RECORDED FINDINGS. CALL LIGHT WITHIN REACH, NO FURTHER NEEDS AT THIS TIME.
[2023-11-07 08:30] VITALS: BP 140/68
--- NOTE | 2023-11-07 10:04 | NUR ---
PT RESTING IN BED, NO REQUESTS AT THIS TIME. STATES HIS PAIN REMAINS AT A 2/10 AND THAT IT IS TOLERABLE. WILL CONTINUE TO MONITOR.
--- NOTE | 2023-11-07 10:35 | NUR ---
DR CHRISTY IN TO SEE PT AND DISCUSS PLAN OF CARE.
--- NOTE | 2023-11-07 10:38 | NUR ---
PATIENT IN BED AT THIS TIME. RN CHARTED VITALS AND SCHOOL CLERK CHARTED I&O'S. CALL LIGHT WITHIN REACH, NO FURTHER NEEDS AT THIS TIME.
[2023-11-07] MEDS ORDERED: DEXTROSE 5% - LACTATED RINGERS 1,000 ML IV SCH (10:45)
[2023-11-07] MEDS ORDERED: HYDROmorphone HCL 1 MG/ML SYR IV PRN (10:45)
--- NOTE | 2023-11-07 11:03 | NUR ---
MRI SCREENING FORM COMPLETED WITH PT. PT NPO FOR TEST.
--- NOTE | 2023-11-07 11:20 | NUR ---
VISITED DURING SPIRITUAL CARE ROUNDS. PT RECEIVING NURSING CARE. DID NOT INTERRUPT. PROVIDED PRAYER.
--- NOTE | 2023-11-07 12:05 | NUR ---
PT SITTING UP IN CHAIR WITH AND DAUGHTER IN ROOM VISITING. CALL LIGHT WITHIN REACH, NO REQUESTS AT THIS TIME.
--- NOTE | 2023-11-07 12:40 | NUR ---
PT TO MRI PER WC.
[2023-11-07 13:50] VITALS: BP 141/69
--- NOTE | 2023-11-07 14:29 | NUR ---
PATIENT IN BED AT THIS TIME. VITALS AND I&O'S CHARTED. CALL LIGHT WITHIN [facility], NO FURTHER NEEDS AT THIS TIME.
--- NOTE | 2023-11-07 14:33 | NUR ---
PT RESTING IN BED LISTENING TO MUSIC, CALL LIGHT WITHIN REACH. NO REQUESTS AT THIS TIME.
--- NOTE | 2023-11-07 14:40 | NUR ---
Spoke with Napoleon. States he had a MRCP. Did not feel as well during the night. No plan for dc today.
--- NOTE | 2023-11-07 15:01 | NUR ---
[facility] CONCURRENT CLINICAL REVIEW: [facility] INPATIENT CRITERIA [facility] INPT 11/03/23 @ 1022 ORDER MATCHES REG AUTH PENDING CLINICAL REVIEW DISCHARGE TO HOME WHEN STABLE 11/10/23
--- NOTE | 2023-11-07 16:00 | NUR ---
PT NAPPING, RESPIRATIONS EVEN AND UNLABORED. CALL LIGHT WITHIN REACH.
[2023-11-07 16:25] VITALS: BP 141/69
--- NOTE | 2023-11-07 16:30 | NUR ---
DR CHRSITY IN TO SEE PT AND DISCUSS PLAN OF CARE AND TEST RESULTS.
--- NOTE | 2023-11-07 18:02 | NUR ---
CALLED IN ROOM FOR PT C/O PAIN. PT SITTING AT EDGE OF BED, CRYING AND CURLED OVER. STATING HE IS HAVING 10/10 UPPER ABD PAIN. PT GIVEN PRN PAIN MEDICATION, SEE EMAR. DENIES FURTHER NEEDS AT THIS TIME. CALL LIGHT IN REACH.
--- NOTE | 2023-11-07 18:20 | NUR ---
PT RESTING IN BED WITH CALL LIGHT WITHIN REACH. PT STATES HIS PAIN HAS SUBSIDED TO 05/08. REMINDED PT TO CALL FOR ASSISTANCE BEFORE GETTING UP, PT STATED UNDERSTANDING.
[2023-11-07 18:52] VITALS: BP 123/62
--- NOTE | 2023-11-07 19:16 | NUR ---
REPORT RECEIVED FROM DAY SHIFT RN. PT LYING IN BED ALERT AND ORIENTED. DENIES NEEDS. WHITE BOARD UPDATED. CALL LIGHT IN REACH.
[2023-11-07 20:19] VITALS: BP 136/62
--- NOTE | 2023-11-07 20:57 | NUR ---
EVENING ASSESSMENT COMPLETE. SCHEDULED MEDS ADMIN PER EMAR. PT DENIES PAIN OR NAUSEA AT THIS TIME. UP TO VOID AND HAVE MEDIUM SEMI LIQUID SOFT BM. BOWEL TONES ACTIVE. ABD SOFT. PT DENIES QUESTIONS OR CONCERNS. CALL LIGHT IN REACH.
--- NOTE | 2023-11-07 23:15 | NUR ---
IV PUMP ALARMING. NEW BAG IVF INFUSING PER ORDER. NO C/O PAIN AT THIS TIME. NO FURTHER NEEDS. CALL LIGHT IN REACH.
[2023-11-08] VITALS (8 sets, daily range): BP systolic 113–148; BP diastolic 64–74
--- NOTE | 2023-11-08 01:03 | NUR ---
PT RESTING IN BED WITH EYES CLOSED. RESPIRATIONS EVEN. CALL LIGHT IN REACH.
--- NOTE | 2023-11-08 01:51 | NUR ---
IV ABX INFUSING PER ORDER. PT LYING ON RIGHT SIDE RESTING WITH EYES CLOSED. RESPIRATIONS EVEN. URINAL EMPTIED. CALL LIGHT IN REACH.
--- NOTE | 2023-11-08 03:56 | NUR ---
PT RESTING IN BED WITH EYES CLOSED. RESPIRATIONS EVEN. CALL LIGHT IN REACH.
--- NOTE | 2023-11-08 05:30 | NUR ---
PT AWAKE IN BED. VS AND I&O OBTAINED. PT DENIES PAIN OR NAUSEA. NO NEEDS AT THIS TIME. CALL LIGHT IN REACH.
[2023-11-08 05:34] LABS: BASOPHILS 0.4 % (0-2); HEMATOCRIT 35.8 % (35.0-50.0); HEMOGLOBIN 12.2 g/dL (12.0-18.0); LYMPHOCYTES 18.6 % (24-44); MCH 28.4 (27-36); MCV 83.6 fl (81-99); MONOCYTES 7.9 % (0-12); NEUTROPHILS 68.1 % (39-80); PLATELET COUNT 290 K/uL (140-440); RBC 4.29 M/ul (4.3-5.7); RDW 13.4 (10.5-15.0)
[2023-11-08 05:50] LABS: ALBUMIN 2.5 g/dL (3.4-5.0); ALBUMIN/GLOBULIN RATIO 0.74 (1.1-2.4); ANION GAP 9.7 (7-21); BILIRUBIN, TOTAL 1.3 ng/dL (0.2-1.0); BUN/CREATININE RATIO 6.18 (6.0-28.6); CALCIUM 8.3 mg/dL (8.5-10.1); CREATININE, SERUM 0.97 mg/dL (0.70-1.30); PHOSPHORUS, INORGANIC 3.1 mg/dL (2.5-4.9); POTASSIUM 3.7 mmol/L (3.5-5.1); PROTEIN, TOTAL 5.9 g/dL (6.4-8.2)
--- NOTE | 2023-11-08 08:00 | NUR ---
PATIENT IN CHAIR AT THIS TIME. CALL LIGHT WITHIN REACH, NO FURTHER NEEDS AT THIS TIME.
--- NOTE | 2023-11-08 08:27 | NUR ---
Patient awake, alert and oriented x4. Patient reports abdominal pain, recent dilaudid admin. Patient aware of plan for surgery this afternoon. IV abx started per provider order. IV site patent. No current needs, personal supplies and call light within reach.
[2023-11-08] MEDS ORDERED: FAMOTIDINE 20 MG/ 2 ML VIAL IV SCH (09:00)
--- NOTE | 2023-11-08 09:13 | NUR ---
med rec complete.
--- NOTE | 2023-11-08 09:41 | NUR ---
MD PLANS TO TAKE PATIENT TO THE OR TODAY FOR A BEL. THE REVERSER WILL MONITOR [place] FOR POST-OP NEEDS.
--- NOTE | 2023-11-08 11:39 | NUR ---
VISITED DURING SPIRITUAL CARE ROUNDS. PT EXPRESSED CONFIDENCE IN CARE AND OPTISM FOR RECOVERY AFTER PENDING PROCEDURE. PROVIDED SUPPORTIVE PRESENCE, PRAYER. PT EXPRESSED GRATITUDE.
[2023-11-08] MEDS ORDERED: KETOROLAC TROMETHAMINE 30 MG/ML VIAL ONE (14:11)
[2023-11-08] MEDS ORDERED: ondansetron HCL 4 MG/2 ML VIAL ONE (14:11)
[2023-11-08] MEDS ORDERED: SUGAMMADEX SODIUM 200 MG/2 ML ML ONE (14:11)
[2023-11-08] MEDS ORDERED: propofoL 200 MG/20 ML VIAL ONE (14:11)
[2023-11-08] MEDS ORDERED: ROCURONIUM BROMIDE 50 MG/5 ML SYR ONE ×2 (14:11→15:29)
[2023-11-08] MEDS ORDERED: DEXAMETHASONE SOD PHOS 4 MG/ML VIAL ONE (14:11)
[2023-11-08] MEDS ORDERED: dexmedeTOMIDine HCl 200 MCG/2 ML VIAL ONE (14:11)
[2023-11-08] MEDS ORDERED: LIDOCAINE HCL 1% 30 ML SDV ONE (14:11)
[2023-11-08] MEDS ORDERED: KETAMINE in NS 50 MG/5 ML SYR ONE (14:13)
[2023-11-08] MEDS ORDERED: fentaNYL citrate 100 MCG/2 ML VIAL ONE (14:59)
[2023-11-08] MEDS ORDERED: LACTATED RINGER'S 1,000 ML IV ONE (15:00)
[2023-11-08] MEDS ORDERED: fentaNYL citrate 50 MCG/ML SDV IV PRN (16:15)
[2023-11-08] MEDS ORDERED: IBLOOD GLUCOSE TEST STRIP 1 EA TEST VI PRN (16:15)
[2023-11-08] MEDS ORDERED: NALOXONE HCL 0.4 MG SYR IV PRN (16:15)
[2023-11-08] MEDS ORDERED: ondansetron HCL 4 MG/2 ML VIAL IV PRN (16:15)
[2023-11-08] MEDS ORDERED: HYDROCODONE/ACETA 5/325 TAB PO PRN (16:30)
--- NOTE | 2023-11-08 16:53 | NUR ---
Patient back to the medical floor from surgery. Patient awake, alert to self and place. Patient denies pain at this time. Abdominal lap sites x4 reported, gauze dressings x3 noted, scant serosang shadowing noted to dressings. Patient's vital signs are stable. Patient is on room air, respirations even and non labored. Family at bedside. No current needs, personal supplies and call light within reach.
--- NOTE | 2023-11-08 17:07 | NUR ---
11/08/23 1707 Holly Spence 1607- PT PRESENTS TO PACU, SEMI GUERRERO POSITION. O2 AT 6L PER MASK, LR INFUSING TO RFA IV. BREATHING EVEN AND NON LABORED. PT REACTIVE TO STIMULUS. ABD SOFT, NON DISTENDED. DRESSINGS IN PLACE TO ABD, SMALL AMOUNT OF DRAINAGE, ICE PLACED TO ABD. ALL MONITORS IN PLACE. 1614- PT DENIES PAIN AND NAUSEA. MOVED TO ROOM AIR AT THIS TIME DUE TO REACHING AT FACE AND PUTTING HANDS BEHIND HEAD. PT REPORTS FEELING COLD AND IS VISIBLY SHAKING. WARM BLANKETS AND WARM AIR PLACED ON PT. 1620- PT CONTINUES TO ONLY REPORT SHAKING BUT FEELS LIKE HE IS WARMING UP. 1645- PT DROWSY, BUT AWAKE ANSWERING QUESTIONS. PT SHAKING HAS SUBSIDED, REPORTS HIS "BUTT" FEELS COLD. NO OTHER COMPLAINTS. 1650- PT TAKEN TO MED/SURG VIA BED. LR HANGING TO RFA IV, LFA IV SALINE LOCKED. PT ON ROOM AIR, ALERT AND CONVERSING WITH STAFF AND FAMILY. DRESSINGS ASSESSED WITH VANITA JOSE, ICE REMAINS IN PLACE. BED PLUGGED IN AND LOWEST POSITION, FAMILY AT BEDSIDE. REPORT TO VANITA JOSE AT BEDSIDE, CARE OF PT TURNED OVER AT THIS TIME.
--- NOTE | 2023-11-08 17:35 | NUR ---
PT RESTING IN BED WTIH FAMILY AT BEDSIDE AND CALL LIGHT WITHIN REACH. PT DENIES PAIN AT THIS TIME, ALERT AND ORIENTED. PT HAS ABD DRSG X3 FROM LAP BEL INTACT. 2 HAVE SLIGHT SHADOWING, THE THIRD ON THE LEFT IS CDI. TAKING SIPS OF CLEAR LIQUID, PT TOLERATING WELL.
--- NOTE | 2023-11-08 18:55 | NUR ---
PT RESTING IN BED WITH CALL LIGHT WITHIN REACH. PT DENIES PAIN. R) SIDE DRSG CDI, OTHER 2 DRSGS WITH SHADOWING.
--- NOTE | 2023-11-08 19:22 | NUR ---
BEDSIDE REPORT...PATIENT RESTING IN BED, ASKED TO HAVE URINAL AND TO TALE A BREAK FROM SCDS. THIS IS PROVIDED. PATIENT REPORTS NO SIGNIFICANT PAIN AT THIS TIME, HE REPORT MILD ACHE. NO OTHER REQUESTS AT THIS TIME.
--- NOTE | 2023-11-08 20:21 | NUR ---
PAST POST OP V/S COMPLETE, V/S STABLE NO CONCERNS, PATIENT REPORTS PAIN WELL MANAGED AT THIS TIME. ASSESSMENT COMPLETE, NOTED MODERATE DISTENTION OF ABD, PATIENT REPORTS THIS IS HOW IT HAS BEEN SINCE ADMISSION. SURGICAL SITES NOT CHNAGED FROM SHIFT REPORT.
--- NOTE | 2023-11-08 23:59 | NUR ---
PATIENT ALERT TO RN IN ROOM ROUNDING, HE REPORTS PAIN IS 4/10 AND JUST UNCOMFORTABLE ENOUGH TO KEEP WAKING HIM UP. TWO TABS NORCO ADMINISTERED PRN AT THIS TIME. PATIENT HAD VOIDED 400 IN URINAL. HE HAS NO OTHER REQUESTS AT THIS TIME.
--- NOTE | 2023-11-09 01:00 | NUR ---
PATIENT RESTING QUIELTY IN BED SNORING NOTED, PATIENT ON CONTINUOUS BEDSIDE PULSE OXIMETRY MAINTAINING 94% AND BETTER.
[2023-11-09 01:54] VITALS: BP 106/58
[2023-11-09 04:58] VITALS: BP 123/68
--- NOTE | 2023-11-09 05:00 | NUR ---
RUG CLEANER HELPER OBTAINED VITALS AND I&O. PT STATES NO FURTHER NEEDS AT THIS TIME. CALL LIGHT WITHIN REACH.
--- NOTE | 2023-11-09 05:40 | NUR ---
PATIENT IS ALERT AND ORIENTED, HE REPORTS PAIN IS WELL MANAGED AT THIS TIME, ENCOURAGED PATIENT TO MAKE SURE TO NOT LET PAIN GET TO HIGH TODAY WILL BE GET UP AND WALK DAY. HE SMILED AND AGREED. ASSESSMENT COMPLETE, NO NEW CONCERNS.
[2023-11-09 06:43] LABS: BASOPHILS 0.5 % (0-2); EOSINOPHILS 0.2 % (0-6); HEMATOCRIT 38.2 % (35.0-50.0); HEMOGLOBIN 12.5 g/dL (12.0-18.0); MCH 27.9 (27-36); MCHC 32.8 g/dl (30-36); MONOCYTES 5.7 % (0-12); NEUTROPHILS 82.6 % (39-80); PLATELET COUNT 278 K/uL (140-440); RBC 4.49 M/ul (4.3-5.7); RDW 13.1 (10.5-15.0)
[2023-11-09 06:58] LABS: ALBUMIN 2.6 g/dL (3.4-5.0); ALBUMIN/GLOBULIN RATIO 0.72 (1.1-2.4); ANION GAP 7.9 (7-21); BILIRUBIN, TOTAL 1.1 ng/dL (0.2-1.0); BUN/CREATININE RATIO 7.92 (6.0-28.6); CALCIUM 8.2 mg/dL (8.5-10.1); CREATININE, SERUM 1.01 mg/dL (0.70-1.30); PHOSPHORUS, INORGANIC 3.4 mg/dL (2.5-4.9); POTASSIUM 3.9 mmol/L (3.5-5.1); PROTEIN, TOTAL 6.2 g/dL (6.4-8.2)
--- NOTE | 2023-11-09 07:07 | OR ---
[facility] [address] [place], [place] [address] Signed DATE OF OPERATION: 11/08/2023 SURGEON: Mayo Christy MD PREOPERATIVE DIAGNOSES: 1. Acalculous cholecystitis. 2. Pancreatitis. POSTOPERATIVE DIAGNOSES: 1. Cholecystitis with cholelithiasis x1 (2 x 4 x 3 mm). 2. Pancreatitis. PROCEDURES: 1. Laparoscopic cholecystectomy with intraoperative cholangiogram. 2. Needle liver biopsy. ESTIMATED BLOOD LOSS: None. FINDINGS: Fortino probably has a little bit of fatty liver. He had a little edema to his gallbladder wall, but nothing significant. We found one flat stone 2 x 4 x 3 mm in the gallbladder. Intraoperative cholangiogram did not reveal any filling defects. INDICATIONS: Fortino is a 63-year-old gentleman, who came with severe epigastric abdominal pain about every four days. He has had it now three different episodes. It was associated with chills, rigors and nausea. He had initially came in the emergency room on 10/29/2023. He had been allowed to go home when CT scan was negative. He came back four days later with recurrent symptoms. Always with increased liver function tests and his lipase. His blood cultures came back with Klebsiella. He had an ultrasound also on 11/02/2023, which showed no stones. The common bile duct was unremarkable at 6.8 mm and the liver was negative and the Danielle sign was also negative. He even had an MRCP yesterday which was unremarkable. However, every time his labs improved and he starts to clear liquid diet, it repeats itself. We did talk about Fortino's rosuvastatin, but he has been on it several years. I did consult my hospitalist over the phone. After a long discussion with Fortino, the last two days, we decided we would proceed with his laparoscopic cholecystectomy with intraoperative cholangiogram. We plan to do a needle biopsy at the same time. I brought Fortino brochure on the gallbladder, which we reviewed together. He understands the location of function of the gallbladder relative to the pancreas. We Electronically Signed By: MAYO CHRISTY MD 11/09/23 0707 PATIENT NAME: FORTINO MART OPERATIVE REPORT DATE OF : 64 REPORT #: [id number] PHYSICIAN: MAYO CHRISTY MD PCP: MATEO VANESSA MD REPORT IS CONFIDENTIAL AND NOT TO BE RELEASED WITHOUT AUTHORIZATION [facility] [address] [place] [id number] Signed had reviewed the expected intraop and postop course. There is risk including, but not limited to bleeding, infection, scarring, change in contour of the skin, damage to bowel damage to main bile duct, incisional hernias and the inability to correct to relieve his symptoms. He had expressed understanding and wished to proceed. PROCEDURE IN DETAIL: I met with Fortino and his in our preop area. After this, Fortino was taken in the operating room and placed in the supine position under general endotracheal tube anesthesia. He was already on preoperative antibiotics to include cefepime and Flagyl which cover the Klebsiella and his gallbladder. He was on preoperative Lovenox. SCDs were in place. He was prepped and draped in the usual sterile fashion. After he was pharmacologically paralyzed, I palpated his abdomen very carefully. I could not feel the liver edge. I could not feel a gallbladder. I could not feel any fullness to the pancreas. We then proceeded to place all our trocars as usual under direct visualization without difficulty. We had taken multiple pictures throughout for photodocumentation. Again, he probably has just some mild fatty liver. Otherwise, the surface was quite smooth. The gallbladder itself was slightly edematous but not particularly concerning. We dissected out the triangle of Calot very carefully. We introduced our intraoperative cholangiocatheter into the cystic duct. The intraoperative cholangiogram was then performed. Contrast flowed nicely into the duodenum without any filling defects. We secured the cystic duct stump with a PDS Endoloop along with a couple of clips to fortino its location. We then carefully took down the gallbladder with a couple of additional clips on the cystic artery. The gallbladder was then placed into an EndoCatch bag. The right upper quadrant was irrigated and suctioned out until clear. We then passed our needle into the liver for our liver biopsy. We had a nice biopsy about 2 cm in length. The bleeding on the top of the liver was easily controlled with the cautery. We then used our laparoscopic suturing device to pass 0-Vicryl suture on either side of the fascia of the subxiphoid trocar site. This was tied down to close this fascia primarily. After this, all the gas was allowed to escape and the remaining trocars were removed along with the gallbladder. The gallbladder had been passed off to our circulating nurse for photodocumentation. We found one single stone in the gallbladder measuring 2 x 4 x 3 mm. It was flat and rhomboid in shape rather than round and spherical. We then closed the fascia of the supraumbilical trocar site with interrupted [id number] and simple 0-Vicryl sutures. Local anesthetic was injected into all trocar sites. The each wound was irrigated and suctioned out until clear. The skin and dermis of each trocar site were closed with interrupted 3-0 subcuticular Monocryl sutures. Dry gauze and tape was applied to all incisions. Fortino was then awakened from his anesthesia, extubated in the OR, and taken to recovery room in stable condition. Electronically Signed By: MAYO CHRISTY MD 11/09/23 0707 PATIENT NAME: FORTINO MART OPERATIVE REPORT DATE OF : 64 REPORT #: [id number] PHYSICIAN: MAYO CHRISTY MD PCP: MATEO VANESSA MD REPORT IS CONFIDENTIAL AND NOT TO BE RELEASED WITHOUT AUTHORIZATION [address] [address] Signed MD MICHELLE Gibbs/AHSANL /[id number] cc: MD Mateo Gibbs MD Copies: MAYO CHRISTY MD, MALCOLM MD ~ Electronically Signed By: MAYO CHRISTY MD 11/09/23 0707 PATIENT NAME: FORTINO MART OPERATIVE REPORT DATE OF : 64 REPORT #: [id number] PHYSICIAN: MAYO CHRISTY MD PCP: MATEO VANESSA MD REPORT IS CONFIDENTIAL AND NOT TO BE RELEASED WITHOUT AUTHORIZATION
--- NOTE | 2023-11-09 08:22 | NUR ---
PATIENT IN BED AT THIS TIME. CALL LIGHT WITHIN REACH, NO FURTHER NEEDS AT THIS TIME.
[2023-11-09] MEDS ORDERED: FAMOTIDINE 20 MG TAB PO SCH (09:00)
[2023-11-09 09:22] VITALS: BP 117/56
--- NOTE | 2023-11-09 09:57 | NUR ---
PATIENT IN BED AT THIS TIME. VITALS AND I&O'S CHARTED. CALL LIGHT WITHIN REACH, NO FURTHER NEEDS AT THIS TIME.
[2023-11-09 10:27] VITALS: BP 117/56
--- NOTE | 2023-11-09 11:38 | NUR ---
PATIENT IN BED AT THIS TIME. PATIENT WAS GIVEN FRESH ICE WATER BY SPECIAL EDUCATION TEACHERS. CALL LIGHT WITHIN REACH, NO FURTHER NEEDS AT THIS TIME.
[2023-11-09 13:40] VITALS: BP 139/60
[2023-11-09] MEDS ORDERED: HYDROCODON-ACE1 EAC8 PO (14:40)
[2023-11-09] MEDS ORDERED: AUGMENTIN 500-1 EACH PO (14:40)
--- NOTE | 2023-11-11 06:40 | DS ---
[facility] [address] [place], [place] [address] Signed ADMISSION DATE: 11/03/2023 DISCHARGE DATE: 11/09/2023 FINAL DIAGNOSES: 1. Cholecystitis with cholelithiasis x1. 2. Pancreatitis. 3. Klebsiella pneumoniae bacteremia. 4. Senescent gynecomastia. 5. Bilateral peripelvic renal cysts. PROCEDURES: 1. Laparoscopic cholecystectomy with intraoperative cholangiogram. 2. Needle liver biopsy. 3. CT scan of abdomen and pelvis x2. 4. Ultrasound of right upper quadrant. 5. MRCP. HISTORY OF PRESENT ILLNESS: Alexi is a 63-year-old gentleman, I have known for many years. Upon my return from vacation, Alexi had been admitted by our hospitalist surgeon, Dr. Mayen. Alexi was having severe epigastric abdominal pain with chills, rigors and nausea. He had at least three such episodes about every four days. He initially came to the emergency room on 10/29/2023. He was allowed to go home. He came back, was admitted on 11/02/2023 with recurrent symptoms. Initial CT scan on the 28 of October was not particularly concerning other than some concern over mild gynecomastia by the radiologist. I think based on physical exam and marked age, it is probably some very mild senescent gynecomastia. Initially, Alexi was admitted by our locum surgeon. He was found to have Klebsiella pneumoniae in his blood and therefore the Ancef and Flagyl were switched over to cefepime and Flagyl. Interestingly, his white count was normal throughout the whole hospital course. Again, the repeat CT scan was not overly concerning. Ultrasound again did not show any stones and the common bile duct was not dilated at 6.8 mm. The liver was unremarkable. He seemed to have a negative Danielle sign. He was treated conservatively, started to get better and then once he started his diet, his symptoms returned. By that point, I had to return from vacation. We went ahead and ordered an MRCP for Alexi on 11/07/2023. The common bile duct and pancreatic ducts were unremarkable. There were no stones. The gallbladder, liver, and pancreas were all unremarkable. He does have bilateral peripelvic renal cysts with the left being more than the right. After a complete chart review and two days of discussion with Alexi and his , we decided that he probably had some level of cholecystitis. We decided to take him to the operating room yesterday. He underwent an uncomplicated laparoscopic cholecystectomy with intraoperative cholangiogram. He had one flat 2 x 4 x 3 mm stone Electronically Signed By: MAYO CHRISTY MD 11/11/23 0640 PATIENT NAME: ALEXI MART DISCHARGE SUMMARY DATE OF : 64 REPORT #: [id number] PHYSICIAN: MAYO CHRISTY MD PCP: MATEO CORTES MD REPORT IS CONFIDENTIAL AND NOT TO BE RELEASED WITHOUT AUTHORIZATION [address] [address] Signed in the gallbladder. He had some mild cholesterolosis. The intraoperative cholangiogram was unremarkable. The liver looked perfectly fine except for some mild steatosis. We went and took a needle biopsy on the right lobe of the liver. Of course, that is pending. This morning, Alexi looks and feels much better. He has been taking liquid diet without any recurrent symptoms. He is very happy to report that he has been having flatus throughout the afternoon and night. He actually said he would like to go home. I think at this point, we are going to discontinue his IV fluids. We will increase him to a full liquid diet. Let him have a cefepime and Flagyl this morning. If he does well, we are going to let him go home later today. We have removed all the dressings. He is going to shower as usual. DISCHARGE PLAN AND MEDICATIONS: We are going to discharge Alexi to home later today, so long as he does well with a prescription for [place] 10/325 one tablet p.o. q.6 hours p.r.n. for severe pain. We will dispense 15 tablets with no refills. We will give him Augmentin 500 mg one tablet p.o. b.i.d. for three days without refills to complete treatment of his Klebsiella pneumoniae. He can certainly use Tylenol, ibuprofen or Aleve for [id number] postoperative pain. He can purchase that [id number]. He is going to resume the rosuvastatin and lisinopril as it is chronic medications and probably not related to his current issues. We are going to allow him to perform his activities of daily living including walking up and down stairs and showering and bathing as usual. We have asked him not to do any heavy pushing, pulling or lifting over about 10 pounds. He is going to take a week off work. I have asked him to follow up my office in about 7-14 days to make sure that he continues to do well. I have asked him to see his primary care provider, Dr. Mateo Cortes, in about 2-4 weeks to review all his issues including the clinically insignificant gynecomastia as well as the issue of the rosuvastatin, although doubtful that it has led to his current situation. I have reviewed this with Alexi in detail. He has expressed understanding and agrees above plan. MD MICHELLE Gibbs/AHSANL /[id number] cc: Mateo Cortes MD Electronically Signed By: MAYO CHRISTY MD 11/11/23 0640 PATIENT NAME: ALEXI MART DISCHARGE SUMMARY DATE OF : 64 REPORT #: [id number] PHYSICIAN: MAYO CHRISTY MD PCP: MATEO CORTES MD REPORT IS CONFIDENTIAL AND NOT TO BE RELEASED WITHOUT AUTHORIZATION [address] [address] Signed Patient Chart Mayo Christy MD Copies: MATEO CORTES MD, ANDREW L MD ~ Electronically Signed By: MAYO CHRISTY MD 11/11/23 0640 PATIENT NAME: ALEXI MART DISCHARGE SUMMARY DATE OF : 64 REPORT #: [id number] PHYSICIAN: MAYO CHRISTY MD PCP: MATEO CORTES MD REPORT IS CONFIDENTIAL AND NOT TO BE RELEASED WITHOUT AUTHORIZATION
--- NOTE | 2023-11-14 11:23 | PATH ---
[facility] [address], [place] [address] Signed SPECIMEN(S): A GALLBLADDER WITH STONE SPECIMEN(S): B LIVER BIOPSY SPECIMEN SOURCE: A. GALLBLADDER WITH STONE B. LIVER BIOPSY CLINICAL HISTORY: A) Pancreatitis/acute cholecystitis. B) Hepatitis, pancreatitis, negative radiographic studies. FINAL PATHOLOGIC DIAGNOSIS: A. Gallbladder with stone: - Chronic calculous cholecystitis. B. 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 - Negative for significant portal fibrosis (stage 0 of 4). - Negative for significant stainable iron. JVR:dks MICROSCOPIC EXAMINATION: Histologic sections of all submitted blocks are examined by light microscopy. These findings, together with the gross examination, support the pathologic diagnosis. Special stains are performed with appropriate controls on block B1 and show the following: - PAS with diastase: Negative for alpha-1 antitrypsin globules. - Reticulin: Preserved lobular architecture. - Iron: Negative for significant stainable iron. - Trichrome: Highlights the portal tracts without significant periportal fibrosis. JVR:dks GROSS DESCRIPTION: A. The specimen, labeled and designated "Yessica, gallbladder with stone," is received in formalin and consists of: Specimen: Previously opened gallbladder. Dimensions: 7.0 x 3.2 x 3.2 cm. Serosa: Inkerman-casey and wrinkled/smooth. Cystic Duct: Unobstructed, margin inked black and shaved. Calculi: A black flattened and roughened calculus (0.8 x 0.6 x 0.3 cm). PATIENT NAME: ALEXI MART PATHOLOGY DATE OF : 64 REPORT #: [id number] PHYSICIAN: NORM MONACO PCP: ROD VANESSA MD REPORT IS CONFIDENTIAL AND NOT TO BE RELEASED WITHOUT AUTHORIZATION [facility] [address], [place] [address] Signed Mucosa: Red-brown to pink-casey and velvety. Wall thickness: 0.3 to 0.8 cm. Lymph node: No pericystic lymph nodes are grossly identified. Additional: None. [employer] sections are submitted in (A1). B. The specimen, labeled and designated "Yessica, liver biopsy," is received in formalin and consists of one core of brown-yellow soft tissue (1.7 cm in greatest dimension). The tissue is stained with eosin, and the specimen is submitted entirely in cassette (B1). VB (under the direct supervision of a pathologist) The Gross Description was prepared using a voice recognition system. The report was reviewed for accuracy; however, sound-alike word errors, addition and/or deletions may occur. If there is any question about this report, please contact Client Services. ADDITIONAL NOTES: Immunohistochemical and/or in situ hybridization studies were performed on this case with the appropriate positive controls that react as expected. This test was developed and its performance characteristics determined by [employer]. It has not been cleared or approved by the U.S. Food and Drug Administration. The FDA has determined that such clearance or approval is not necessary. This test is used for clinical purposes. It should not be regarded as investigational or for research. [employer] is certified under the Clinical Laboratory Improvement Amendments of 1988 (CLIA) as qualified to perform high complexity clinical laboratory testing. This assay has not been validated for specimens that have been decalcified. PERFORMING LABORATORY: Technical component was performed by [facility], [address] [place], [place] [address]aj [facility] [place] [address] (CLIA# [id number]). Professional interpretation was performed by [facility] - [facility], [address] [place], [place] [address]e., [place] [address] (CLIA#: [id number]). Diagnostician: Elton Lomax MD Pathologist Electronically Signed 11/14/2023 Copies: PATIENT NAME: ALEXI MART PATHOLOGY DATE OF : 64 REPORT #: [id number] PHYSICIAN: NORM PATHOLOGY PCP: ROD VANESSA MD REPORT IS CONFIDENTIAL AND NOT TO BE RELEASED WITHOUT AUTHORIZATION [facility] [address], [place] [address] Signed ~ PATIENT NAME: ALEXI MART PATHOLOGY DATE OF : 64 REPORT #: [id number] PHYSICIAN: NORM PATHOLOGY PCP: ROD VANESSA MD REPORT IS CONFIDENTIAL AND NOT TO BE RELEASED WITHOUT AUTHORIZATION
== END 2023-11-09 15:50 | disposition home or self-care (01) | DRG 419 ==
LOC: ED 20:13 → MS 20:14
PROVIDERS: Colon & Rectal Surgery; Internal Medicine; ADMIT Transplant Surgery; ATTEND Transplant Surgery
PROC: 0FB13ZX Excision of Right Lobe Liver, Percutaneous Approach, Diagnostic (ICD-10-PCS; 2023-11-08)
PROC: 0FT44ZZ Resection of Gallbladder, Percutaneous Endoscopic Approach (ICD-10-PCS; principal; 2023-11-08 13:30)
DX: K80.10 Calculus of gallbladder with chronic cholecystitis without obstruction (principal); S61.309A Unspecified open wound of unspecified finger with damage to nail, initial encounter; X58.XXXA Exposure to other specified factors, initial encounter; B96.1 Klebsiella pneumoniae [K. pneumoniae] as the cause of diseases classified elsewhere; N62 Hypertrophy of breast; N28.1 Cyst of kidney, acquired; K76.0 Fatty (change of) liver, not elsewhere classified; E78.5 Hyperlipidemia, unspecified; Z87.891 Personal history of nicotine dependence; Z79.811 Long term (current) use of aromatase inhibitors; Z79.899 Other long term (current) drug therapy; Z98.890 Other specified postprocedural states; Z71.6 Tobacco abuse counseling; Z71.41 Alcohol abuse counseling and surveillance of alcoholic
CPT/HCPCS: 00790; 36415; 74177; 74183; 74300; 76705; 80053; 81001; 83605; 83690; 83735; 84100; 85025; 87040; 87077; 87186; 96366; 96375; 96376; 99285-25; A9577; G0378; J0690; J0692; J1100; J1170; J1885; J2405; J2543; J2704; J3010; J3490; J7121; Q9967

== ENCOUNTER 2024-07-21 07:19 | Day surgery (SDC) | payer OTHER ==
[~2024-07-21] VITALS: Ht 188 cm; Wt 98.1 kg
[~2024-07-21 07:19] MED LIST changes: +AUGMENTIN 500-1 EACH PO; +IBLOOD GLUCOSE TEST STRIP 1 EA TEST VI PRN; +LACTATED RINGER'S 1,000 ML IV SCH; +LIDOCAINE HCL 1% 5 ML SDV INJ ONE; +LISINOPRIL10 MG PO; +MIDAZOLAM HCL 5 MG/5 ML VIAL IV PRN; +ROSUVASTATIN CA10 MG PO; +fentaNYL citrate 100 MCG/2 ML VIAL IV PRN
[2024-07-21 07:48] VITALS: BP 119/67
[2024-07-21] MEDS ORDERED: TYLENOL325 MG PO ×2 (07:50)
[2024-07-21] MEDS ORDERED: MIDAZOLAM HCL 5 MG/5 ML VIAL ONE (08:39)
[2024-07-21] MEDS ORDERED: fentaNYL citrate 100 MCG/2 ML VIAL ONE (08:39)
[2024-07-21 10:01] VITALS: BP 105/68
--- NOTE | 2024-07-21 11:06 | NUR ---
07/21/24 1106 Holly Spence 0930- PT ARRIVES TO PACU, LEFT LATERAL POSITION. REACTIVE TO STIMULUS, O2 AT 3L PER NC, BREATHING EVEN AND NON LABORED. LR INFUSING TO RFA IV. PT ABD SOFT, NON DISTENDED. ALL MONITORS IN PLACE. 0940- PT CONTINUES TO REST, NO SIGNS OF DISTRESS. PASSING GAS. 0950- MOVED TO ROOM AIR AT THIS TIME, PT RESTING, WILL CONTINUE TO MONITOR. 1003- PT ROLLED TO BACK ON OWN, SAT UP IN BED. WATER PROVIDED AND TOLERATING WELL. 1006- PT UP TO SIDE OF BED, NO DIZZINESS OR NAUSEA, FEELS READY TO GET DRESSED. CALLED FOR RIDE. 1015-PT VERBALIZED UNDERSTANDING OF INSTRUCTIONS. SALINE LOCK REMOVED, TIP INTACT, DRESSING APPLIED. PT DROWSY BUT ANSWERING QUESTIONS APPROPRIATELY. TRANSFERRED TO WHEELCHAIR WITH STEADY GAIT, TAKEN OUT TO CAR BY VOLUNTEER WITH ALL BELONGINGS. NO SIGNS OF DISTRESS.
--- NOTE | 2024-07-22 07:20 | OR ---
[facility] [address], [place] [address] Signed DATE OF OPERATION: 07/21/2024 SURGEON: Mayo Christy MD PREOPERATIVE DIAGNOSIS: Mother with history of colonic polyps. POSTOPERATIVE DIAGNOSES: 1. Minimal sigmoid diverticulosis. 2. 4 mm polyps in the cecum, proximal right colon, ileocecal valve, distal right colon, 88 cm in left colon, 48 cm in left colon, and 15 cm in rectum. PROCEDURE: Colonoscopy without biopsy. ESTIMATED BLOOD LOSS: None. INDICATIONS: Alexi is a 63-year-old gentleman asked to see me for a followup colonoscopy. We know his mom had colonic polyps removed. He is not sure what age his mother started with polyps. I helped Alexi with his initial colonoscopy in 2013 at the age of 53. We asked him to stay on the five year plan. This was due to his mother's history. His colonoscopy was negative. He did well with Versed and fentanyl. He did his Cologuard in 2020. This was negative. Since the gallbladder was removed, he gets a little fecal soilage from time to time. I told him that is pretty common. Otherwise, he has no lower GI complaints. In the office, I gave him a pamphlet on colonoscopy. We had reviewed the nature of the test. There is risk including, but not limited to gas bloating, crampy abdominal pain, bleeding, perforation requiring surgery, and missed diagnosis. We also reviewed the written instructions for the bowel prep line by line. It is the same prep he took back in 2013. He had expressed understanding and wished to proceed. He understands an adult person has to take him home afterwards. DESCRIPTION OF PROCEDURE: Alexi was taken into our endoscopy suite, placed in the left lateral decubitus position. He was given 7 mg of Versed and 125 mcg of fentanyl to cover the case. A digital rectal exam was performed. This was unremarkable. Alexi is a very tall gentleman, I could not reach his prostate gland. The adult colonoscope was introduced and advanced all the way around into the cecum under direct visualization of camera without difficulty. It took just a little extra sedation and a little abdominal compression to advance the scope. Electronically Signed By: MAYO CHRISTY MD 07/22/24 0720 PATIENT NAME: ALEXI MART OPERATIVE REPORT DATE OF : 64 REPORT #: [id number] PHYSICIAN: MAYO CHRISTY MD PCP: ROD VANESSA MD REPORT IS CONFIDENTIAL AND NOT TO BE RELEASED WITHOUT AUTHORIZATION [facility] [address], [place] [address] Signed His prep was quite excellent. We could easily see the appendiceal orifice and ileocecal valve. We removed the above mentioned polyps with the help of hot biopsy forceps. He had just a few diverticula in the sigmoid colon. They were small in size, few in number and scattered about. Once in the rectum, the scope was retroflexed and really a little or no pathology above the anal canal. After this the gas was suctioned out, colonoscope removed. Alexi tolerated the procedure quite well. RECOMMENDATIONS: I will see Alexi back in my office in 7 to 14 days to review his results. I suspect he will be on the five year colonoscopy rotation. Mayo Christy MD ALB/MODL /[id number] cc: DO Mayo Valles MD Copies: DORA HUFF ANDREW L MD ~ Electronically Signed By: MAYO CHRISTY MD 07/22/24 0720 PATIENT NAME: ALEXI MART OPERATIVE REPORT DATE OF : 64 REPORT #: [id number] PHYSICIAN: MAYO CHRISTY MD PCP: ROD VANESSA MD REPORT IS CONFIDENTIAL AND NOT TO BE RELEASED WITHOUT AUTHORIZATION
--- NOTE | 2024-07-22 14:15 | PATH ---
[facility] [address] [facility] [place], [place] [address] Signed SPECIMEN(S): A CECUM POLYP SPECIMEN(S): B PROXIMAL ASCENDING POLYP SPECIMEN(S): C ILEOCECAL VALVE BIOPSY SPECIMEN(S): D DISTAL ASCENDING POLYP SPECIMEN(S): E DESCENDING POLYP, 88 CM SPECIMEN(S): F DESCENDING POLYP, 48 CM SPECIMEN(S): G RECTAL POLYP, 15 CM SPECIMEN SOURCE: A. CECUM POLYP B. PROXIMAL ASCENDING POLYP C. ILEOCECAL VALVE BIOPSY D. DISTAL ASCENDING POLYP E. DESCENDING POLYP, 88 CM F. DESCENDING POLYP, 48 CM G. RECTAL POLYP, 15 CM CLINICAL HISTORY: Family history of colon cancer FINAL PATHOLOGIC DIAGNOSIS: A. Cecum, polypectomy: - Tubular adenoma B. Colon, proximal ascending, polypectomy: - Tubular adenoma C. Ileocecal valve, biopsy: - Small bowel mucosa with no significant pathologic changes D. Colon, distal ascending, polypectomy: - Tubular adenoma E. Colon, descending at 88 cm, polypectomy: - Colonic mucosa with no significant pathologic changes F. Colon, descending at 48 cm, polypectomy: - Tubular adenoma G. Rectum, 15 cm, polypectomy: - Tubular adneoma BRP MICROSCOPIC EXAMINATION: Histologic sections of all submitted blocks are examined by light microscopy. These findings, together with the gross examination, support the pathologic diagnosis. PATIENT NAME: ALEXI MART PATHOLOGY DATE OF : 64 REPORT #: [id number] PHYSICIAN: NORM PATHOLOGY PCP: ROD VANESSA MD REPORT IS CONFIDENTIAL AND NOT TO BE RELEASED WITHOUT AUTHORIZATION [facility] [address], [place] [address] Signed GROSS DESCRIPTION: A. The specimen, labeled and designated "Mart, cecum polyp," is received in formalin and consists of one casey soft tissue fragment, 0.3 cm. Entirely submitted in (A1). B. The specimen, labeled and designated "Mart, proximal ascending polyp," is received in formalin and consists of one casey soft tissue fragment, 0.3 cm. Entirely submitted in (B1). C. The specimen, labeled and designated "Mart, ileocecal valve biopsy," is received in formalin and consists of one casey soft tissue fragment, 0.2 cm. Entirely submitted in (C1). D. The specimen, labeled and designated "Mart, distal ascending polyp," is received in formalin and consists of one casey soft tissue fragment, 0.1 cm. Entirely submitted in (D1). E. The specimen, labeled and designated "Mart, descending polyp, 88 cm," is received in formalin and consists of one casey soft tissue fragment, 0.3 cm. Entirely submitted in (E1). F. The specimen, labeled and designated "Mart, descending polyp, 48 cm," is received in formalin and consists of one casey soft tissue fragment, 0.2 cm. Entirely submitted in (F1). G. The specimen, labeled and designated "Mart, rectal polyp, 15 cm," is received in formalin and consists of one casey soft tissue fragment, 0.2 cm. Entirely submitted in (G1). VB (under the direct supervision of a pathologist) The Gross Description was prepared using a voice recognition system. The report was reviewed for accuracy; however, sound-alike word errors, addition and/or deletions may occur. If there is any question about this report, please contact Client Services. ADDITIONAL NOTES: Immunohistochemical and/or in situ hybridization studies if performed in this case included appropriate positive controls that reacted as expected. This test was developed and its performance characteristics determined by [employer]. It has not been cleared or approved by the U.S. Food and Drug Administration. The FDA has determined that such clearance or approval is not necessary. This test is used for clinical purposes. It should not be regarded as investigational or for research. [employer] is certified under the Clinical Laboratory Improvement Amendments of 1988 (CLIA) as qualified to perform high complexity clinical laboratory testing. PATIENT NAME: ALEXI MART PATHOLOGY DATE OF : 64 REPORT #: [id number] PHYSICIAN: [employer] CARLOS ENRIQUE PCP: ROD VANESSA MD REPORT IS CONFIDENTIAL AND NOT TO BE RELEASED WITHOUT AUTHORIZATION [facility] [address], [place] [address] Signed PERFORMING LABORATORY: Technical component was performed by [employer], [facility] [place] [address] (CLIA# [id number]). Professional interpretation was performed by [facility] - [facility], [address] [place], [place] [address]jos[place] [address] (CLIA#: [id number]). Diagnostician: Rico Ovalle MD Pathologist Electronically Signed 07/22/2024 Copies: ~ PATIENT NAME: ALEXI MART PATHOLOGY DATE OF : 64 REPORT #: [id number] PHYSICIAN: NORM PATHOLOGY PCP: ROD VANESSA MD REPORT IS CONFIDENTIAL AND NOT TO BE RELEASED WITHOUT AUTHORIZATION
[2024-07-22] MEDS ORDERED: TYLENOL EXTRA500 MG PO ×2 (17:42)
== END 2024-07-21 10:15 | disposition home or self-care (01) ==
LOC: DS 07:19
PROVIDERS: ATTEND Colon & Rectal Surgery
PROC: 0DBP8ZZ Excision of Rectum, Via Natural or Artificial Opening Endoscopic (ICD-10-PCS; 2024-07-21)
PROC: 0DBF8ZZ Excision of Right Large Intestine, Via Natural or Artificial Opening Endoscopic (ICD-10-PCS; 2024-07-21)
PROC: 0DBG8ZZ Excision of Left Large Intestine, Via Natural or Artificial Opening Endoscopic (ICD-10-PCS; 2024-07-21)
PROC: 0DBC8ZZ Excision of Ileocecal Valve, Via Natural or Artificial Opening Endoscopic (ICD-10-PCS; 2024-07-21)
PROC: 0DBH8ZZ Excision of Cecum, Via Natural or Artificial Opening Endoscopic (ICD-10-PCS; principal; 2024-07-21 09:00)
DX: Z12.11 Encounter for screening for malignant neoplasm of colon (principal); D12.2 Benign neoplasm of ascending colon; D12.0 Benign neoplasm of cecum; D12.4 Benign neoplasm of descending colon; D12.8 Benign neoplasm of rectum; I10 Essential (primary) hypertension; E78.2 Mixed hyperlipidemia; Z87.891 Personal history of nicotine dependence; Z79.899 Other long term (current) drug therapy; Z90.49 Acquired absence of other specified parts of digestive tract
CPT/HCPCS: 99153; G0500; J2250; J3010; J7121

== ENCOUNTER 2024-07-22 17:00 | Inpatient (IN) | payer OTHER ==
[~2024-07-22] VITALS: Ht 188 cm; Wt 93.5 kg
[2024-07-22] VITALS (14 sets, daily range): BP systolic 50–142; BP diastolic 63–80
[~2024-07-22 17:00] MED LIST changes: -IBLOOD GLUCOSE TEST STRIP 1 EA TEST VI PRN; -LACTATED RINGER'S 1,000 ML IV SCH; -LIDOCAINE HCL 1% 5 ML SDV INJ ONE; -MIDAZOLAM HCL 5 MG/5 ML VIAL IV PRN; +TYLENOL325 MG PO; -fentaNYL citrate 100 MCG/2 ML VIAL IV PRN
[2024-07-22] MEDS ORDERED: SODIUM CHLORIDE 0.9% 500 ML IV PRN (17:30)
[2024-07-22] MEDS ORDERED: TYLENOL EXTRA500 MG PO ×2 (17:42)
[2024-07-22 17:50] LABS: BASOPHILS 0.3 % (0-2); EOSINOPHILS 0.7 % (0-6); HEMATOCRIT 37.4 % (35.0-50.0); LYMPHOCYTES 21.5 % (24-44); MCH 29.2 (27-36); MCHC 34.8 g/dl (30-36); MCV 83.8 fl (81-99); MONOCYTES 7.1 % (0-12); NEUTROPHILS 70.4 % (39-80); PLATELET COUNT 249 K/uL (140-440); RBC 4.46 M/ul (4.3-5.7)
[2024-07-22 17:57] LABS: ALBUMIN 3.6 g/dL (3.4-5.0); ALBUMIN/GLOBULIN RATIO 1.29 (1.1-2.4); ANION GAP 13.9 (7-21); BUN/CREATININE RATIO 27.52 (6.0-28.6); CALCIUM 8.4 mg/dL (8.5-10.1); CREATININE, SERUM 1.09 mg/dL (0.70-1.30); POTASSIUM 3.9 mmol/L (3.5-5.1); PROTEIN, TOTAL 6.4 g/dL (6.4-8.2)
[2024-07-22 18:26] LABS: ABO O; ANTIBODY SCREEN NEGATIVE; RH POSITIVE
[2024-07-22] MEDS ORDERED: DEXTROSE 5% - LACTATED RINGERS 1,000 ML IV SCH (18:30)
[2024-07-22] MEDS ORDERED: POLYETHYLENE GLYCOL 3350 BOTTLE PO ONE ×2 (18:30→20:50)
[2024-07-22] MEDS ORDERED: ondansetron HCL 4 MG/2 ML VIAL IV PRN (18:30)
--- NOTE | 2024-07-22 20:30 | NUR ---
PT UP TO BATHROOM FOR BOWEL MOVEMENT, HR FROM 0'S UP TO 113 WHILE UP, BACK DOWN ONCE HES IN BED. PT HAD 300ML DARK RED LIQUID STOOL. PT DOES REPORT FEELING MORE WEAK WHEN UP.
--- NOTE | 2024-07-22 20:43 | NUR ---
PT UP TO BR, NOW BACK TO BED, BRIGHT RED BLOOD, 300 ML, PLUS UNMEASURED IN TOILET. PT STATES HE FEELS WEAKER. SBA TO AND FROM BATHROOM. IV FLUIDS INFUSING, IN ROOM.
--- NOTE | 2024-07-22 21:44 | NUR ---
PT UP TO BATHROOM FOR 400ML DARK RED LIQUID STOOL, HR UP TO 127 WHEN UP AND DOWN TO 80'S ONCE IN BED. BP REMAINS WNL. PT DOES REPORT MORE SOB AND WEAKNESS WITH THIS LAST TIME UP. AT BEDISDE.
--- NOTE | 2024-07-22 22:06 | NUR ---
18 GAUGE IV STARTED IN RFA, WILL SEND REPEAT CBC WITH LAB DRAW. PT DENIES NEEDS AT THIS TIME, HAS COMPLETED ONE BOTTLE OF BOWEL PREP AND STARTING THE SECOND, WATCHING TV IN BED. DENIES PAIN, DENIES NAUSEA. DOES C/O SOME ABD "GURGLING" ONCE IN A WHILE.
[2024-07-22 22:13] LABS: BASOPHILS 0.3 % (0-2); EOSINOPHILS 1.3 % (0-6); HEMATOCRIT 35.2 % (35.0-50.0); HEMOGLOBIN 12.4 g/dL (12.0-18.0); LYMPHOCYTES 27.7 % (24-44); MCH 29.5 (27-36); MCHC 35.3 g/dl (30-36); MCV 83.8 fl (81-99); MONOCYTES 7.2 % (0-12); NEUTROPHILS 63.5 % (39-80); PLATELET COUNT 244 K/uL (140-440); RDW 13.3 (10.5-15.0)
--- NOTE | 2024-07-22 22:35 | NUR ---
PT CALLS FOR ASSISTANCE UP TO BATHROOM, RN IN TO HELP HIM UP. HE AMBULATED TO BR WITHOUT ANY DIFFICULTY, SAT ON TOILET APPROX 5 WHEN HE PULLED THE CALL LIGHT, RN WENT IN TO HELP HIM AND FOUND HIM SLUMPED DOWN ON TOILET, VERY PALE AND DIAPHORETIC. RN ASKED ARE YOU OKAY AND HE SAID "I GOT VERY LIGHTHEADED ALL OF THE SUDDEN AND I FEEL LIKE IM GOING TO PASS OUT". HE THEN BECAME UNRESPONSIVE AND THEN WOKE UP AND STARTED VOMITING. RAPID RESPONSE CALLED, DR CHRISTY CALLED AND HE STATES HE WILL COME IN TO SEE PT.
--- NOTE | 2024-07-22 23:20 | NUR ---
DR CHRISTY IN TO SEE PT, ORDERS GIVEN FOR LABS AND CHEST XRAY, SURGICAL CREW ON THEIR WAY IN. CALLED AND NOTIFIED, SHE IS ON HER WAY IN ALSO.
[2024-07-22 23:22] LABS: BASOPHILS 0.4 % (0-2); EOSINOPHILS 1.2 % (0-6); HEMATOCRIT 33.9 % (35.0-50.0); LYMPHOCYTES 33.4 % (24-44); MCH 29.6 (27-36); MCHC 35.3 g/dl (30-36); MCV 83.9 fl (81-99); MONOCYTES 7.4 % (0-12); NEUTROPHILS 57.6 % (39-80); PLATELET COUNT 253 K/uL (140-440); RBC 4.04 M/ul (4.3-5.7); RDW 13.4 (10.5-15.0)
[2024-07-22 23:33] LABS: ALBUMIN 3.2 g/dL (3.4-5.0); ALBUMIN/GLOBULIN RATIO 1.23 (1.1-2.4); ANION GAP 12.4 (7-21); BUN/CREATININE RATIO 25.74 (6.0-28.6); CALCIUM 8.1 mg/dL (8.5-10.1); CREATININE, SERUM 1.01 mg/dL (0.70-1.30); MAGNESIUM 1.9 mg/dL (1.8-2.4); POTASSIUM 3.4 mmol/L (3.5-5.1); PROTEIN, TOTAL 5.8 g/dL (6.4-8.2)
[2024-07-22 23:36] LABS: INR 0.95 (0.80-1.30); PROTIME 12.6 Sec (11.2-14.2)
[2024-07-22] MEDS ORDERED: propofoL 200 MG/20 ML VIAL ONE (23:39)
[2024-07-22] MEDS ORDERED: LIDOCAINE HCL 2% 5 ML SDV ONE (23:39)
[2024-07-22 23:45] LABS: ABO O; RH POSITIVE
[2024-07-22] MEDS ORDERED: ePHEDrine sulfate 50 MG/ML AMP ONE (23:51)
[2024-07-23] VITALS (17 sets, daily range): BP systolic 92–124; BP diastolic 51–71
--- NOTE | 2024-07-23 00:08 | NUR ---
RT ARRIVED AROUND 2250 FOR RAPID RESPONSE.
[2024-07-23 00:14] LABS: IS CROSSMATCH COMPATIBLE
--- NOTE | 2024-07-23 00:23 | NUR ---
PT BACK FROM OR, AWAKE AND SLIDES HIMSELF OVER TO BED FROM BLAS. REPORT RECEIVED FROM CAYLA JOSE AND ANESTHESIA. IN ROOM, DR CHRISTY IN TO UPDATE . PT DENIES PAIN/NEEDS AT THIS TIME, VSS.
[2024-07-23] MEDS ORDERED: ACETAMINOPHEN 650 MG SUPP PR PRN (00:45)
[2024-07-23] MEDS ORDERED: ACETAMINOPHEN 325 MG TAB PO PRN (00:45)
[2024-07-23] MEDS ORDERED: PROCHLORPERAZINE EDISYLATE 10 MG/2 ML VIAL IV PRN (00:45)
[2024-07-23] MEDS ORDERED: DEXTROSE 5% - LACTATED RINGERS 1,000 ML IV SCH (00:45)
[2024-07-23] MEDS ORDERED: ondansetron HCL 4 MG/2 ML VIAL IV PRN (00:45)
--- NOTE | 2024-07-23 01:51 | NUR ---
IN TO CHECK ON PT, WARM BLANKET GIVEN, HR 80'S, SPO2 98% ON ROOM AIR. HE DENIES PAIN/SOB/NAUSEA. IS LEAVING FOR THE NIGHT, CALL LIGHT IN HAND AND HE STATES HE WILL CALL IF HE NEEDS TO GET UP.
--- NOTE | 2024-07-23 02:15 | NUR ---
NOTED BP CUFF POPPED OFF ARM. ADJUSTED, NO NEEDS AT THIS TIME.
--- NOTE | 2024-07-23 03:09 | NUR ---
PT RESTING WITH EYES CLOSED, RESP EVEN AND UNLABORED, SPO2 96% ON ROOM AIR, HR 80'S SINUS RHYTHM.
--- NOTE | 2024-07-23 05:30 | NUR ---
LAB IN TO DRAW, PT HAS NO REQUESTS AT THIS ITME
[2024-07-23 05:37] LABS: BASOPHILS 0.1 % (0-2); EOSINOPHILS 0.2 % (0-6); HEMATOCRIT 30.5 % (35.0-50.0); HEMOGLOBIN 10.9 g/dL (12.0-18.0); LYMPHOCYTES 10.8 % (24-44); MCH 29.7 (27-36); MCHC 35.6 g/dl (30-36); MCV 83.3 fl (81-99); MONOCYTES 6.3 % (0-12); NEUTROPHILS 82.6 % (39-80); PLATELET COUNT 220 K/uL (140-440); RBC 3.66 M/ul (4.3-5.7)
[2024-07-23 05:51] LABS: ALBUMIN/GLOBULIN RATIO 1.3 (1.1-2.4); ANION GAP 13.9 (7-21); BILIRUBIN, TOTAL 1.5 mg/dL (0.2-1.0); BUN/CREATININE RATIO 23.75 (6.0-28.6); CALCIUM 7.6 mg/dL (8.5-10.1); CREATININE, SERUM 0.8 mg/dL (0.70-1.30); POTASSIUM 3.9 mmol/L (3.5-5.1); PROTEIN, TOTAL 5.3 g/dL (6.4-8.2)
--- NOTE | 2024-07-23 06:34 | OR ---
[facility] [address], [place] [address] Signed DATE OF OPERATION: 07/23/2024 SURGEON: Mayo Christy MD PREOPERATIVE DIAGNOSIS: Rectal bleeding following multiple polypectomies yesterday. POSTOPERATIVE DIAGNOSIS: Bleeding polypectomy site on ileocecal valve. PROCEDURE: Colonoscopy with clips x2. ESTIMATED BLOOD LOSS: Minimal. INDICATIONS: Alexi is a 63-year-old gentleman, I have known for quite some time. We know his mom had a history of colonic polyps. I helped Alexi with his initial colonoscopy back in 2013 at the age of 53. This was negative. In 2020, he had a negative Cologuard test. He came back recently then for followup colonoscopy via his primary care provider. I took him to the endoscopy suite yesterday. He did quite well. He had minimal sigmoid diverticulosis. We took out 4 mm polyps in the cecum, proximal right colon, ileocecal valve, distal right colon, 8 cm in left colon, 48 cm in left colon and 15 cm in rectum. He had gone home after and did well with Versed and fentanyl. He started to have a little bleeding earlier in the day and it seemed to be getting progressively worse. It seemed to come about an hour after he ate each time. In the emergency room, he was hemodynamically stable and doing quite well. We went ahead and admitted him to our ICU with IV fluids and we started his bowel prep with plans to repeat the colonoscopy in the morning. He was on the toilet and he had a voluminous amount of kind a dark maroon-colored liquid blood, vasovagal and pulled the string. Thankfully, he did not fall off the toilet. He did vomit a little bit. We did order a chest x-ray and it is pending. We have checked a couple of times now. Eventually, he was put back in bed. He recovered quite nicely. I was asked to come see him obviously here in the ICU. When I got here, he was alert, awake and interactive. He was quite conversant. I explained to Alexi his current situation. My greatest concern is for the biopsy site on his ileocecal valve. In fact, we have the pathology report back already, which is quite incredible. All the other biopsies were adenomatous polyps, but the ileocecal valve biopsy was negative for any pathology. Alexi understands we need to go back and do his colonoscopy. He understands the nature of the test. There is risk including, but not Electronically Signed By: MAYO CHRISTY MD 07/23/24 0634 PATIENT NAME: ALEXI MART OPERATIVE REPORT DATE OF : 64 REPORT #: [id number] PHYSICIAN: MAYO CHRISTY MD PCP: NO PRIMARY CARE PHYSICIAN REPORT IS CONFIDENTIAL AND NOT TO BE RELEASED WITHOUT AUTHORIZATION [facility] [address] [place] [id number] Signed limited to gas bloating, crampy abdominal pain, bleeding, perforation requiring surgery, and missed diagnosis. He had expressed understanding and wished to proceed. DESCRIPTION OF PROCEDURE: Alexi was taken into our endoscopy suite and placed in the left lateral decubitus position. Given his urgent situation, we did have our anesthesia provider help us with monitored anesthesia care. A digital rectal exam was done and this was unremarkable. The adult colonoscope was introduced and we did have dark maroon-colored blood that we suctioned out as we went. Overall, he was pretty clean. We made it all the way back up slowly to the ileocecal valve. Several polypectomy sites were seen and they were not bleeding. But then we found the polypectomy site on the ileocecal valve and of course there was fresh blood clot. We were able to apply two clips with good hemostasis. The scope was then slowly withdrawn. We suctioned out some more maroon-colored liquid blood as we went. He had a couple of tiny 4 mm polyps in the proximal right colon that we saw. But more importantly, he has about a 7 mm sessile polyp at 25 cm that will need to come out here in on a short interval say a few months to 18 months or so. He knows I am retiring at the end of September and he may need to have another provider help him in that regard. I also explained that to his . After this, the gas was suctioned out and the colonoscope was removed. Alexi tolerated the procedure quite well. RECOMMENDATIONS: Alexi was taken back to his ICU bed and we will let him have IV fluids and some clear liquids. I reviewed the pictures in the findings with his including the sessile polyp at 25 cm in the sigmoid colon and he is to come out on a short interval. Mayo Christy MD ALB/MODL /[id number] cc: MD Isai Gibbs DO Copies: MAYO CHRISTY MD Electronically Signed By: MAYO CHRISTY MD 07/23/24 0634 PATIENT NAME: ALEXI MART OPERATIVE REPORT DATE OF : 64 REPORT #: [id number] PHYSICIAN: MAYO CHRISTY MD PCP: NO PRIMARY CARE PHYSICIAN REPORT IS CONFIDENTIAL AND NOT TO BE RELEASED WITHOUT AUTHORIZATION [address] [address] Signed ISAI HUFF Electronically Signed By: MAYO CHRISTY MD 07/23/24 0634 PATIENT NAME: ALEXI MART OPERATIVE REPORT DATE OF : 64 REPORT #: [id number] PHYSICIAN: MAYO CHRISTY MD PCP: NO PRIMARY CARE PHYSICIAN REPORT IS CONFIDENTIAL AND NOT TO BE RELEASED WITHOUT AUTHORIZATION
--- NOTE | 2024-07-23 06:34 | CONS ---
[facility] [address], [place] [address] Signed DATE OF CONSULTATION: 07/22/2024 CHIEF COMPLAINT: Rectal bleeding. HISTORY OF PRESENT ILLNESS: Alexi is a 63-year-old gentleman, I have known for many years. I helped him with a followup colonoscopy just yesterday. We know his mom, had colonic polyps removed. I had helped Alexi back in 2013 at the age of 53. We had him on the five year plan. Nevertheless, he chose to do Cologuard test in 2020. This was negative. Since his gallbladder has been removed, he said he gets a little bit of fecal soilage from time to time. I explained to him that is very common. Yesterday , we found that he had minimal sigmoid diverticulosis. We took out 4 mm polyps in the cecum, proximal right colon, ileocecal valve, distal right colon, 88 cm in the left colon, 48 cm in the left colon and 15 cm in the rectum. I had actually warned him that biopsies from the ileocecal valve can bleed. He did well, but each time he ate an hour or so later, he started bleeding and he started to bleed more and more. He came in the emergency room for evaluation. He was hemodynamically stable and have a large amount of blood while in the ER. His hemoglobin was 13 then in the ICU. We started him on his bowel prep, so we could scope him first thing in the morning. The nurse had called me to tell me, he had quite a bit of blood out and had a vasovagal episode on the toilet. Fortunately, he did not fall off the toilet. He did vomit a little bit, so we did order a chest x-ray, but it is not back yet. By the time, I got in from home, he was back in bed and awake and alert and talking to me quite well. We had called in the crew, so we could go and do a scope. PAST MEDICAL HISTORY: 1. Hypertension. 2. Hyperlipidemia. 3. Colonic polyps. PAST SURGICAL HISTORY: Includes: 1. Cholecystectomy. 2. Hernia surgery. 3. Colonoscopy in 2014 at age of 53. SOCIAL HISTORY: He quit smoking. He does not drink. He is . 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 FAMILY HISTORY: His mom had colonic polyps removed. Electronically Signed By: MAYO CHRISTY MD 07/23/24 0634 PATIENT NAME: ALEXI MART CONSULTATION DATE OF : 64 REPORT #: [id number] PHYSICIAN: MAYO CHRISTY MD PCP: NO PRIMARY CARE PHYSICIAN REPORT IS CONFIDENTIAL AND NOT TO BE RELEASED WITHOUT AUTHORIZATION [facility] [address] [place] [id number] Signed REVIEW OF SYSTEMS: Really nothing new to add since, we saw him yesterday. ALLERGIES: None. MEDICATIONS: 1. Lisinopril. 2. Tylenol. 3. Rosuvastatin. PHYSICAL EXAMINATION: VITAL SIGNS: Blood pressure is 121/79, his heart rate is 89, respiratory rate 13, his temperature is 97.4. He is 98% on room air. GENERAL: He is 6 feet 2 inches tall and 93 kg with a body mass index of 26. Alexi is a 63-year-old gentleman, who is sitting supine semi-upright in his ICU bed. He is alert awake and interactive. He does not appear to be in any acute distress. LUNGS: Clear to auscultation bilaterally. HEART: Regular rate and rhythm without murmurs. ABDOMEN: Soft, nontender. LABORATORY DATA: His white blood cell count is 9.3, hemoglobin was 13, it is now 12, platelets 253. His BUN is 26, creatinine 1.0. His liver function tests are negative. Albumin 3.2. The chest x-ray is pending. ASSESSMENT AND PLAN: Alexi is a 63-year-old gentleman, who is having some rectal bleeding following his polypectomy yesterday. I explained to Alexi that more than likely it is the polypectomy site on the ileocecal valve. We want to take him down the endoscopy suite with our anesthesia provider and our nurses, so we can run the camera in and see what we can find. He may or may not need more prep. He understands colonoscopy quite well. There is risk including, but not limited to gas bloating, crampy abdominal pain, bleeding, perforation requiring surgery, and missed diagnosis. He expressed understanding and wished to proceed. Mayo Christy MD ALB/MODL Electronically Signed By: MAYO CHRISTY MD 07/23/24 0634 PATIENT NAME: ALEXI MART CONSULTATION DATE OF : 64 REPORT #: [id number] PHYSICIAN: MAYO CHRISTY MD PCP: NO PRIMARY CARE PHYSICIAN REPORT IS CONFIDENTIAL AND NOT TO BE RELEASED WITHOUT AUTHORIZATION [facility] [address] [place], [place] [address] Signed /[id number] cc: MD Isai Gibbs DO Copies: MAYO CHRISTY MD, ARIAN DO ~ Electronically Signed By: MAYO CHRISTY MD 07/23/24 0634 PATIENT NAME: ALEXI MART CONSULTATION DATE OF : 64 REPORT #: [id number] PHYSICIAN: MAYO CHRISTY MD PCP: NO PRIMARY CARE PHYSICIAN REPORT IS CONFIDENTIAL AND NOT TO BE RELEASED WITHOUT AUTHORIZATION
--- NOTE | 2024-07-23 06:45 | NUR ---
DR CHRISTY IN TO SEE PT
--- NOTE | 2024-07-23 07:27 | NUR ---
REPORT RECEIVED FROM COMPUTER FIELD TECHNICIAN DAMON BUSCH.
--- NOTE | 2024-07-23 08:12 | NUR ---
PATIENT ASSISTED TO THE BEDSIDE COMMODE WITH SBA ASSIST. PATIENT TOLERATED WELL WITH NO COMPLAINTS OF DIZZINESS OR LIGHT-HEADEDNESS. PATIENT HAD 700 OF URINE AND STOOL COMBINED. COLOR IS VERY DARK RED/BROWN. PATIENT IS BACK IN BED WITH HOB ELEVATED. PATIENT WITH BREAKFAST TRAY SET UP IN FRONT OF PATIENT. PATIENT STATED NO FURTHER NEEDS AT THIS TIME. CALL LIGHT AND PERSONAL BELONGINGS ARE WITHIN REACH.
--- NOTE | 2024-07-23 08:30 | NUR ---
0900 PROTONIX ADMINISTERED PER THE EMAR. 0800 VITAL SIGNS TAKEN AND DOCUMENTED IN THE CHART. PATIENT IS ALERT AND ORIENTED TIMES FOUR. PATIENT IS A SBA TO THE BEDSIDE COMMODE. PATIENT WITH GENERALIZED WEAKNESS NOTED. IV SITES BOTH FLUSHED WITH 10 ML NORMAL SALINE. IV IN THE LEFT FOREARM IS SALINE LOCKED AND DRESSING IS CLEAN, DRY, AND INTACT. IV IN THE RIGHT FOREARM WITH D5LR RUNNING AT 100 ML/HR. IV DRESSING IS CLEAN, DRY, AND INTACT. PATIENT WITH NO COMPLAINTS OF PAIN. CARDIAC WITH NORMAL S1 AND S2 ON AUSCULTATION. PATIENT IS ON THE HEART MONITOR. PATIENT WITH NO EDEMA. CAPILLARY REFILL IN THE UPPER AND LOWER EXTREMITIES IS LESS THAN 3 SECONDS BILATERALLY. RADIAL PULSES ARE STRONG. SENSATION INTACT WITH NO COMPLAINTS OF NUMBNESS OR TINGLING. PATIENT IS ON A CLEAR LIQUID DIET WITH NO COMPLAINTS OF NAUSEA OR VOMITING. BOWEL TONES ARE HYPERACTIVE IN ALL FOUR QUADRANTS. PATIENT IS ON ROOM AIR WITH CLEAR LUNG SOUNDS THROUGHOUT. PATIENT WITH NO COMPLAINTS OF NUMBNESS OR TINGLING. PATIENT ROOM PICKED UP BY DAMON COLE. BREAKFAST TRAY REMOVED AND INTAKE AND OUTPUT VALUES DOCUMENTED IN THE CHART. PATIENT IS LYING IN BED WITH THE HOB ELEVATED. PATIENT STATED NO FURTHER NEEDS AT THIS TIME. CALL LIGHT AND PERSONAL BELONGINGS ARE WITHIN REACH.
[2024-07-23] MEDS ORDERED: PANTOPRAZOLE SODIUM 40 MG/10 ML VIAL IV SCH (09:00)
--- NOTE | 2024-07-23 09:03 | NUR ---
PATIENT IS LYING IN BED WITH HOB ELEVATED. PATIENT WITH A VISITOR SITTING AT BEDSIDE. CISCO WITH CASE MANAGEMENT IS IN THE ROOM NOW. CALL LIGHT AND PERSONAL BELONGINGS ARE WITHIN REACH.
--- NOTE | 2024-07-23 09:30 | NUR ---
INTO SEE PATIENT. PERSONAL INFORMATION REVIEWED. PCP DR. LYNCH ON July AT 1:00 PM. PATIENT LIVES IN A HOUSE WITH 2 STEPS TO GET INTO. DENIES ANY DIFFCULTY DOING THEM. PATIENT DRIVES FOR A LIVING. AT BEDSIDE. WILL BE THE ONE TO TAKE HIM HOME AT DISCHARGE. DENIES USE OF WALKER, CANE OR WHEELCHAIR. NO OXYGEN BUT HAS A CPAP ON ORDER THROUGH [facility]. DENIES ANY DIFFCULTY PAYING UTLILITES OR OBTAINING FOOD. DENIES ANY NEEDS FROM .
--- NOTE | 2024-07-23 10:08 | NUR ---
PATIENT IS LYING IN BED WITH HOB ELEVATED. PATIENT WITH EYES CLOSED AND RESPIRATIONS ARE EVEN AND UNLABORED. PATIENT WITH A VISITOR SITTING IN THE CHAIR AT BEDSIDE WHO IS ALSO WITH EYES CLOSED AND RESPIRATIONS ARE EVEN AND UNLABORED. CALL LIGHT AND PERSONAL BELONGINGS ARE WITHIN REACH.
[2024-07-23 10:59] LABS: BASOPHILS 0.1 % (0-2); EOSINOPHILS 0.3 % (0-6); HEMATOCRIT 28.5 % (35.0-50.0); HEMOGLOBIN 9.9 g/dL (12.0-18.0); LYMPHOCYTES 14.4 % (24-44); MCH 29.3 (27-36); MCHC 34.7 g/dl (30-36); MCV 84.5 fl (81-99); MONOCYTES 6.5 % (0-12); NEUTROPHILS 78.7 % (39-80); PLATELET COUNT 191 K/uL (140-440); RBC 3.37 M/ul (4.3-5.7); RDW 13.3 (10.5-15.0)
--- NOTE | 2024-07-23 11:05 | NUR ---
PATIENT IS LYING IN BED WITH HOB ELEVATED. PATIENT IS ON ROOM AIR. PATIENT WITH EYES OPEN AND RESPIRATIONS ARE EVEN AND UNLABORED. PATIENT IS SITTING IN THE CHAIR AT BEDSIDE. CALL LIGHT AND PERSONAL BELONGINGS ARE WITHIN REACH.
--- NOTE | 2024-07-23 12:10 | NUR ---
PATIENT IS LYING IN BED WITH THE HOB ELEVATED. PATIENT LUNCH TRAY SET UP IN FRONT OF THE PATIENT. PATIENT WITH EYES OPEN AND RESPIRATIONS ARE EVEN AND UNLABORED. PATIENT STATED NO FURTHER NEEDS AT THIS TIME. CALL LIGHT AND PERSONAL BELONGINGS ARE WITHIN REACH.
--- NOTE | 2024-07-23 12:50 | NUR ---
1200 ASSESSMENT COMPLETE AND DOCUMENTED IN THE CHART. PATIENT IS LYING IN BED WITH THE HOB. PATIENT IS ALERT AND ORIENTED TIMES FOUR. PATIENT IS ON THE FINANCIAL AID COORDINATOR AND IN NORMAL SINUS RHYTHM. CARDIAC WITH NORMAL S1 AND S2 ON AUSCULTATION. NO EDEMA NOTED. CAPILLARY REFILL IN THE UPPER AND LOWER EXTREMITIES IS LESS THAN 3 SECONDS. RADIAL PULSES ARE STRONG BILATERALLY. SENSATION INTACT WITH NO COMPLAINTS OF NUMBNESS OR TINGLING. PATIENT REMAINS ON A CLEAR LIWUID DIET AND BOWEL TONES ARE HYPERACTIVE IN ALL FOUR QUADRANTS. LAST BM WAS 07/23/24. PATIENT IS ON ROOM AIR WITH NO COMPLAINTS OF SOB. PATIENT WITH LUNG SOUNDS CLEAR THROUGHOUT. PATIENT WITH SOME GENERALIZED WEAKNESS. PATIENT WITH NO COMPLAINTS OF PAIN. IV SITE IN THE LEFT FOREARM FLUSHED WITH 10 ML NORMAL SALINE AND IS SALINE LOCKED. IV DRESSING IS CLEAN, DRY, AND INTACT. IV IN THE RIGHT FOREARM WITH D5LR INFUSING AT 100 ML/HR. IV FLUSHED WITH 10 ML NORMAL SALINE AND THE DRESSING IS CLEAN, DRY, AND INTACT. PATIENT STATED NO FURTHER NEEDS AT THIS TIME. CALL LIGHT AND PERSONAL BELONGINGS ARE WITHIN REACH.
--- NOTE | 2024-07-23 13:14 | NUR ---
medications reconciled
--- NOTE | 2024-07-23 13:17 | NUR ---
PATIENT IS LYING IN BED WITH HOB ELEVATED. PATIENT IS WITH EYES CLOSED AND RESPIRATIONS ARE EVEN AND UNLABORE. PATIENT REMAINS ON THE WET WASH ASSEMBLER. CALL LIGHT AND PERSONAL BELONGINGS ARE WITHIN REACH.
--- NOTE | 2024-07-23 13:40 | NUR ---
NEW BAG OF IVF HUNG.
--- NOTE | 2024-07-23 14:14 | NUR ---
PATIENT IS LYING IN BED WITH HOB ELEVATED. PATIENT IS ON THEIR PHONE. PATIENT STATED NO NEEDS AT THIS TIME. CALL LIGHT AND PERSONAL BELONGINGS ARE WITHIN REACH.
--- NOTE | 2024-07-23 15:25 | NUR ---
1600 ASSESSMENT COMPLETE AT THIS TIME AND DOCUMENTED AT THIS TIME. PATIENT IS ALERT AND ORIENTED TIMES FOUR. PATIENT WITH NO COMPLAINTS OF PAIN AND NAUSEA/VOMITING. PATIENT REMAINS ON TRIAL COURT JUSTICE. PATIENT WITH NORMAL S1 AND S2 ON AUSCULTATION. NO EDEMA NOTED. CAPILLARY REFILL IN THE UPPER AND LOWER EXTREMITIES REMAINS LESS THAN 3 SECONDS BILATERALLY. RADIAL PULSES ARE STRONG BILATERALLY. SENSATION INTACT WITH NO COMPLAINTS OF NUMBNESS OR TINGLING. PATIENT IS ON A CLEAR LIQUID DIET AND BOWEL TONES ARE HYPERACTIVE IN ALL FOUR QUADRANTS. PATIENT IS ON ROOM AIR AND LUNG SOUNDS ARE CLEAR BILATERALLY. IV SITES ARE CLEAN, DRY, AND INTACT. IV IN THE LEFT FOREARM IS SALINE LOCKED. IV IN THE RIGHT FOREARM WITH D5LR AT 100 ML/HR. PATIENT WITH NO COMPLAINTS OF LIGHT HEADEDNESS OR DIZZINESS. PATIENT IS A SBA TO THE BEDSIDE COMMODE. PATIENT STATED NO FURTHER NEEDS AT THIS TIME. CALL LIGHT AND PERSONAL BELONGINGS ARE WITHIN REACH.
--- NOTE | 2024-07-23 16:07 | NUR ---
PATIENT IS LYING IN BED WITH EYES CLOSED AND RESPIRATIONS ARE EVEN AND UNLABORED. CALL LIGHT AND PERSONAL BELONGINGS ARE WITHIN REACH. ENVELOPE ADDRESSER REMAINS IN PLACE.
--- NOTE | 2024-07-23 17:16 | NUR ---
PATIENT AMBULATED TO THE BATHROOM WITH A SBA. PATIENT TOLERATED WELL WITH NO COMPLAINTS OF PAIN, DIZZINESS, OR LIGHT HEADEDNESS. PATIENT VOIDED 300 ML OF LIGHT YELLOW URINE IN THE HAT. PATIENT THEN AMBULATED BACK TO BED WITH SBA AND WAS RECONNECTED TO THE MONITOR. PATIENT STATED NO FURTHER NEEDS AT THIS TIME. CALL LIGHT AND PERSONAL BELONGINGS ARE WITHIN REACH.
--- NOTE | 2024-07-23 18:08 | NUR ---
PATIENT IS LYING IN BED WITH HOB ELEVATED. PATIENT IS ON RA WITH THE COMPENSATION AND BENEFITS ANALYST IN PLACE. PATIENT WITH DINNER TRAY IN PLACE. PATIENT WITH EYES OPEN AND RESPIRATIONS ARE EVEN AND UNLABORED. CALL LIGHT AND PERSONAL BELONGINGS ARE WITHIN REACH.
--- NOTE | 2024-07-23 19:35 | NUR ---
REPORT RECEIVED FROM DAMON BERNAL. PATIENT RESTING IN BED WITH AT BEDSIDE. DENIES NEEDS AT THIS TIME. CALL LIGHT IN REACH.
--- NOTE | 2024-07-23 20:12 | NUR ---
PATIENT CONTINUES TO REST IN BED WITH AT BEDSIDE. VSS, AFEBRILE. PATIENT DENIES PAIN OR NAUSEA. DENIES LIGHTHEADEDNESS OR DIZZINESS. BOWEL SOUNDS ACTIVE IN THE RIGHT AND LEFT UPPER QUADRANTS AND LLQ; HYPERACTIVE IN THE RLQ. PATIENT DENIES PAIN OR TENDERNESS TO PALPATION. PLAN OF CARE REVIEWED. PATIENT AND SPOUSE DENY QUESTIONS OR CONCERNS. BOTH IV SITES PATENT AND FLUSH EASILY. IVF INFUSING WITHOUT DIFFICULTY. CALL LIGHT IN REACH. PATIENT VERBALIZED UNDERSTANDING TO CALL WHEN HE NEEDS TO GET UP.
--- NOTE | 2024-07-23 22:04 | NUR ---
PATIENT USED CALL LIGHT TO REQUEST TO USE BR. OOBTBR WITH SBA. PATIENT PASSED LARGE AMOUNT OF FLATUS AND VOIDED 400 ML YELLOW URINE. DENIES ANY LIGHTHEADEDNESS OR DIZZINESS. BACK TO BED. DENIES OTHER NEEDS OR CONCERNS AT THIS TIME. CALL LIGHT IN REACH.
--- NOTE | 2024-07-23 23:50 | NUR ---
NEW BAG OF IVF HUNG. PATIENT WAS RESTING WITH EYES CLOSED BUT WOKE TO SOUND OF THIS RN IN ROOM. ASSESSMENT CHARTED. PATIENT DENIES PAIN, NAUSEA OR OTHER COMPLAINTS AT THIS TIME. CALL LIGHT IN REACH.
[2024-07-24] VITALS (9 sets, daily range): BP systolic 95–135; BP diastolic 51–94
--- NOTE | 2024-07-24 01:03 | NUR ---
PATIENT USED CALL LIGHT FOR ASSISTANCE UP TO BATHROOM. SBA TO BATHROOM TO VOID 300ML CLEAR YELLOW URINE. PATIENT DENIES OTHER NEEDS OR CONCERNS AT THIS TIME. BACK TO BED, CALL LIGHT IN REACH.
--- NOTE | 2024-07-24 02:04 | NUR ---
0200 BP MEASUREMENT DID NOT READ. PATIENT OPENS EYES WHEN THIS RN IN TO ROOM TO CHECK BP CUFF. BP 111/60 (73). PT DENIES NEEDS. CALL LIGHT IN REACH.
--- NOTE | 2024-07-24 03:57 | NUR ---
PATIENT UP TO BATHROOM TO VOID 400ML YELLOW URINE. ASSESSMENT CHARTED. PATIENT DENIES PAIN OR NAUSEA. DENIES LIGHTHEADEDNESS OR DIZZINESS. DENIES OTHER NEEDS OR CONCERNS AT THIS TIME. CALL LIGHT IN REACH.
[2024-07-24 05:35] LABS: BASOPHILS 0.4 % (0-2); EOSINOPHILS 1.6 % (0-6); HEMATOCRIT 25.2 % (35.0-50.0); LYMPHOCYTES 29.1 % (24-44); MCH 29.3 (27-36); MCHC 35.9 g/dl (30-36); MCV 81.7 fl (81-99); MONOCYTES 6.2 % (0-12); NEUTROPHILS 62.7 % (39-80); PLATELET COUNT 181 K/uL (140-440); RBC 3.08 M/ul (4.3-5.7); RDW 13.2 (10.5-15.0)
[2024-07-24 05:53] LABS: ANION GAP 8.3 (7-21); BUN/CREATININE RATIO 7.79 (6.0-28.6); CALCIUM 7.6 mg/dL (8.5-10.1); CREATININE, SERUM 0.77 mg/dL (0.70-1.30); MAGNESIUM 1.7 mg/dL (1.8-2.4); PHOSPHORUS, INORGANIC 2.3 mg/dL (2.5-4.9); POTASSIUM 3.3 mmol/L (3.5-5.1)
[2024-07-24] MEDS ORDERED: MAGNESIUM SULFATE 2 GM/50 ML BAG IV ONE (06:45)
[2024-07-24] MEDS ORDERED: POTASSIUM PHOSPHATE 30 MMOL in DEXTROSE 5% 500 ML IV ONE (06:45)
--- NOTE | 2024-07-24 06:57 | NUR ---
DR. CHRISTY WAS IN TO ROUND ON PATIENT. PATIENT MADE MED/SURG STATUS. PER DR. CHRISTY, AUGUST RELEASE UNITS OF BLOOD ON HOLD FOR PATIENT. CALL PLACED TO LAB TO NOTIFY. IV MAGNESIUM HUNG; LR RATE REDUCED TO 50ML/HR PER NEW ORDER. PATIENT VERBALIZED UNDERSTANDING OF PLAN OF CARE AND THAT HE WILL STAY ANOTHER NIGHT. CALL LIGHT IN REACH.
--- NOTE | 2024-07-24 07:30 | NUR ---
REPORT RECEIVED FROM SPANISH PROFESSOR RN. PATIENT RESTING IN BED. IVF INFUSING WNL. DENEIS ANY NEEDS AT THIS TIME. CALL LIGHT WITHIN REACH.
--- NOTE | 2024-07-24 08:17 | NUR ---
RECIEVED VERBAL ORDER DR. CHRISTY/Cassie LOMBARDO, RN, TO CHANGE TO INPATIENT STATUS.
--- NOTE | 2024-07-24 08:30 | NUR ---
PT ALERT AND SITTING UP IN BED - DENIES COMPLAINTS AT THIS TIME. NO NAUSEA WITH FULL LIQUID DIET. VS STABLE. PT REQUESTS SHOWER LATER IN DAY. UPDATED ON PLAN OF CARE - PT EXPRESSES DESIRE TO BE DC'D HOME. REPEAT CBC SCHEDULED FOR 1300 - WILL REASSESS AND UPDATE MD ACCORDINGLY.
[2024-07-24] MEDS ORDERED: PANTOPRAZOLE SODIUM 40 MG TABEC PO SCH (09:00)
--- NOTE | 2024-07-24 09:00 | NUR ---
PATIENT RESTING IN BED. URINE AND STOOL NOTED IN BATHROOM. LUNG SOUNDS CTA, BOWEL TONES ACTIVE X 4 QUADRANTS. HEART SOUNDS REGULAR. PATIENT DENIES ANY PAIN OR DISCOMFORT AT THIS TIME. BILATERAL PEDAL PULSES INTACT. PATIENT ATE BREAKFAST WELL THIS AM. NO REPORTS OF GI UPSET. IV SITES PATENT. DENIES ANY FURTHER NEEDS. CALL LIGHT WITHIN REACH.
--- NOTE | 2024-07-24 09:36 | NUR ---
INTO SEE PATIENT. AT BEDSIDE. PATIENT UP IN BED. HE WOULD LIKE TO GO HOME TODAY. POTENTIAL D/C TOMORROW. WILL TAKE HIM HOME ONCE MEDICALLY CLEARED. NO FUTHER CM NEEDS.
--- NOTE | 2024-07-24 10:06 | NUR ---
UR CLINICAL REVIEW: [facility] [place] MEETS INPT FOR GI BLEED, LOWER MONITORING LABS, IV FLUIDS, LIQUID DIET [facility] INPT 07/24/24 @ 0817 ORDER MATCHES REG AUTH PENDING, WILL SEND CLINICALS TO [facility] PLAN TO DC TO HOME WHEN MEDICALLY STABLE. 07/27/24
--- NOTE | 2024-07-24 10:45 | NUR ---
CALL LIGHT ANSWERED. PATIENT ASSISTED TO BATHROOM WITH 1 PA SATND BY. FOR LINE AND TUBE MANAGEMENT. VOID IN TOILET. PATIENT BACK TO BED. NO FURTHER NEEDS. CALL LIGHT WITHIN REACH.
--- NOTE | 2024-07-24 12:44 | NUR ---
CALL LIGHT ANSWERED PATIENT AMBULATED TO BATHROOM 1 PA STAND BY ASSIST. VOID IN TOILET. BACK INTO BED. EATING LUNCH. DENEIS ANY PAIN OR DISCOMFORT. CALL LIGHT WITHIN REACH.
[2024-07-24 13:04] LABS: BASOPHILS 0.2 % (0-2); HEMOGLOBIN 9.8 g/dL (12.0-18.0); LYMPHOCYTES 26.3 % (24-44); MCH 29.1 (27-36); MCV 83.2 fl (81-99); MONOCYTES 6.8 % (0-12); NEUTROPHILS 65.7 % (39-80); PLATELET COUNT 198 K/uL (140-440); RBC 3.36 M/ul (4.3-5.7); RDW 13.1 (10.5-15.0)
--- NOTE | 2024-07-24 14:10 | NUR ---
CALL PLACED TO MD GASTELUMING PATIENT'S MOST RECENT LABD. PATIENT RESTING IN BED WITH NO ISSUES AT THIS TIME. CALL LIGHT WITHIN REACH.
--- NOTE | 2024-07-24 15:02 | NUR ---
PATIENT BACK FROM BATHROOM. NOTED SM BM AND VOID FOR 400MLS. NO FURTHER NEEDS CALL LIGHT WITHIN REACH.
== END 2024-07-24 16:00 | disposition home or self-care (01) | DRG 921 ==
LOC: ED 17:00 → CCU 17:01
PROVIDERS: Emergency Medicine; ADMIT Colon & Rectal Surgery; ATTEND Colon & Rectal Surgery
PROC: 0W3P8ZZ Control Bleeding in Gastrointestinal Tract, Via Natural or Artificial Opening Endoscopic (ICD-10-PCS; principal; 2024-07-23)
DX: K91.840 Postprocedural hemorrhage of a digestive system organ or structure following a digestive system procedure (principal); I10 Essential (primary) hypertension; E78.5 Hyperlipidemia, unspecified; Z90.49 Acquired absence of other specified parts of digestive tract; Z98.890 Other specified postprocedural states; Z87.891 Personal history of nicotine dependence; Z79.899 Other long term (current) drug therapy; E87.6 Hypokalemia; E83.42 Hypomagnesemia; E83.39 Other disorders of phosphorus metabolism
CPT/HCPCS: 00811; 36415; 71045; 80048; 80053; 83735; 84100; 85025; 85610; 86850; 86900; 86901; 86922; 94799; A9270; G0378; J2003; J2470; J2704; J3475; J7060; J7121

== ENCOUNTER 2025-01-25 06:20 | Day surgery (SDC) | payer OTHER ==
[~2025-01-25] VITALS: Ht 188 cm; Wt 95.5 kg
[~2025-01-25 06:20] MED LIST changes: +MIDAZOLAM HCL 5 MG/5 ML VIAL IV PRN; +TYLENOL EXTRA500 MG PO; +fentaNYL citrate 100 MCG/2 ML VIAL IV PRN
[2025-01-25 06:38] VITALS: BP 133/71
[2025-01-25] MEDS ORDERED: IRON18 M1 PO (06:54)
[2025-01-25] MEDS ORDERED: IRON240 MG PO (06:55)
[2025-01-25] MEDS ORDERED: LACTATED RINGER'S 1,000 ML IV SCH (07:00)
[2025-01-25] MEDS ORDERED: LIDOCAINE HCL 1% 5 ML SDV INJ ONE (07:00)
[2025-01-25] MEDS ORDERED: IBLOOD GLUCOSE TEST STRIP 1 EA TEST VI PRN (07:00)
[2025-01-25] MEDS ORDERED: MIDAZOLAM HCL 5 MG/5 ML VIAL ONE (07:04)
[2025-01-25] MEDS ORDERED: fentaNYL citrate 100 MCG/2 ML VIAL ONE (07:05)
--- NOTE | 2025-01-25 08:19 | NUR ---
01/25/25 0819 Alexandria Zazueta 0814: PT ARRIVED TO PACU VIA STRETCHER. PT ALERT AND REPSONDING TO QUESTIONS. PT ON 3L NC. NO COMPLAINTS OF PAIN OR NAUSEA A THIS TIME. ABDOMEN SOFT NON DISTENEDED.
[2025-01-25 08:46] VITALS: BP 101/75
--- NOTE | 2025-01-25 15:58 | OR ---
[facility] [address] [place], [place] [address] Signed DATE OF OPERATION: 01/25/2025 SURGEON: Kevin Arellano MD PREOPERATIVE DIAGNOSES: 1. History of multiple polyps, June 2024 (Dr. Krishna Trivedi). 2. Presumed persistent polyp of sigmoid and questionable adenomatous change of ileocecal valve. 3. Immediate postoperative repeat colonoscopy for bleeding at ileocecal valve (Dr. Krishna Trivedi). POSTOPERATIVE DIAGNOSES: 1. Sigmoid diverticulosis (minimal). 2. Adenomatous appearing ileocecal valve (biopsied). 3. No evidence of polyp at 25 cm. PROCEDURE: Total colonoscopy to cecum with biopsy of ileocecal valve. ANESTHESIA: Intravenous sedation fentanyl 100 mcg and Versed 5 mg. INDICATION: This 64-year-old white man is patient of Dr. Derrick Bacon. He has been seen Dr. Krishna Tirvedi over the years for colonoscopy. He underwent colonoscopy in June 2024. He had multiple polyps an adenomatous appearing ileocecal valve. This too was biopsied by Dr. Trivedi. The patient had immediate significant postoperative gastrointestinal bleeding following colonoscopy and had repeat colonoscopy the following day showing bleeding at the ileocecal valve to biopsy site which was secured with hemoclips. The remaining colon showed only diverticulosis, but there was thought to be a polyp 7 mm in size at 25 cm. On that basis, a repeat early colonoscopy was recommended. He has no current symptoms of bleeding, diarrhea or constipation. He understands risk of colonoscopy and wished to proceed. FINDINGS: The prep was good. Complete colonoscopy was undertaken of the cecum without question. The ileocecal valve did have adenomatous appearing changes for which biopsy was obtained. Extensive biopsy was not done, however. There was no untoward bleeding. Remaining colon was normal. Careful inspection through the area of the sigmoid and left colon failed to identify any polyp as had been thought still present. Diverticula were Electronically Signed By: KEVIN ARELLANO MD 01/25/25 1558 PATIENT NAME: ALEXI MART OPERATIVE REPORT DATE OF : 64 REPORT #: [id number] PHYSICIAN: KEVIN ARELLANO MD PCP: GILSON LOGAN MD REPORT IS CONFIDENTIAL AND NOT TO BE RELEASED WITHOUT AUTHORIZATION [facility] [address] [place], [place] [address] Signed noted, however. PROCEDURE IN DETAIL: The patient was brought to the endoscopy suite and placed in lateral decubitus position, given intravenous sedation to the point of slurred speech and nystagmus. Digital rectal examination was normal. An Olympus video colonoscope was passed in the rectum and manipulated throughout the colon noting diverticula of the sigmoid. Scope was ultimately advanced to the cecum. The ileocecal valve and appendiceal orifice were identified. Ileocecal valve appeared to have adenomatous change including those on narrow band imaging. A single biopsy was obtained to ascertain this. There was no distinct polyp, however. The scope was withdrawn after that. Examination throughout showed no sign of abnormality specifically no polyp at 25 cm. The scope was reintroduced up to 60 cm and passed back and forth through the left and sigmoid colon failing to identify any other polyp. The scope was ultimately removed. The patient was taken to the recovery room in good condition. CONCLUDING DIAGNOSES: 1. Ileocecal valve suspicious for adenomatous change which would be contradictory to previous biopsy. 2. Diverticula. 3. Absence of polyp in sigmoid as had been presumed. PLAN: Recommend repeat colonoscopy in one year. He will return to the ongoing care of Dr. Derrick Bacon in the meantime. Kevin Arellano MD JM/MODL /[id number] cc: Dr. Bacon Electronically Signed By: KEVIN ARELLANO MD 01/25/25 1558 PATIENT NAME: ALEXI MART OPERATIVE REPORT DATE OF : 64 REPORT #: [id number] PHYSICIAN: KEVIN ARELLANO MD PCP: GILSON LOGAN MD REPORT IS CONFIDENTIAL AND NOT TO BE RELEASED WITHOUT AUTHORIZATION [facility] [address] [place] [id number] Signed Copies: ~ Electronically Signed By: KEVIN ARELLANO MD 01/25/25 1558 PATIENT NAME: ALEXI MART OPERATIVE REPORT DATE OF : 64 REPORT #: [id number] PHYSICIAN: KEVIN ARELLANO MD PCP: GILSON LOGAN MD REPORT IS CONFIDENTIAL AND NOT TO BE RELEASED WITHOUT AUTHORIZATION
--- NOTE | 2025-01-27 16:02 | PATH ---
[facility] [address] [place], [place] [address] Signed SPECIMEN(S): A ILEOCECAL VALVE BIOPSY SPECIMEN SOURCE: A. ILEOCECAL VALVE BIOPSY CLINICAL HISTORY: Pre-: History of tubular adenomas 07/21. Post-questionable ileocecal valve polyp? A) cecal valve rule out adenoma FINAL PATHOLOGIC DIAGNOSIS: Ileocecal valve biopsy: - Colon and small bowel mucosa with polypoid features focally suggestive of inflamed serrated polyp/adenoma. JVR:clv MICROSCOPIC EXAMINATION: Histologic sections of all submitted blocks are examined by light microscopy. These findings, together with the gross examination, support the pathologic diagnosis. GROSS DESCRIPTION: The specimen, labeled and designated "Yessica, ileocecal valve biopsy," is received in formalin and consists of two casey soft tissue fragments, ranging from 0.2-0.3 cm. Entirely submitted in (A1). AB (under the direct supervision of a pathologist) The Gross Description was prepared using a voice recognition system. The report was reviewed for accuracy; however, sound-alike word errors, addition and/or deletions may occur. If there is any question about this report, please contact Client Services. PERFORMING LABORATORY: Technical component was performed by [facility], [address] [place] [id number] (CLIA# [id number]). Professional interpretation was performed by [facility], [address] [place] [id number] (CLIA#: [id number]). Diagnostician: Elton Lomax MD Pathologist Electronically Signed 01/27/2025 PATIENT NAME: ALEXI MART PATHOLOGY DATE OF : 64 REPORT #: [id number] PHYSICIAN: [facility] PCP: GILSON LOGAN MD REPORT IS CONFIDENTIAL AND NOT TO BE RELEASED WITHOUT AUTHORIZATION [address] [address] Signed Copies: ~ PATIENT NAME: ALEXI MART PATHOLOGY DATE OF : 64 REPORT #: [id number] PHYSICIAN: [facility] PATHOLOGY PCP: GILSON LOGAN MD REPORT IS CONFIDENTIAL AND NOT TO BE RELEASED WITHOUT AUTHORIZATION
== END 2025-01-25 08:54 | disposition home or self-care (01) ==
LOC: DS 06:20
PROVIDERS: ATTEND Surgery
PROC: 0DJD8ZZ Inspection of Lower Intestinal Tract, Via Natural or Artificial Opening Endoscopic (ICD-10-PCS; principal; 2025-01-25 07:30)
DX: Z09 Encounter for follow-up examination after completed treatment for conditions other than malignant neoplasm (principal); K57.90 Diverticulosis of intestine, part unspecified, without perforation or abscess without bleeding
CPT/HCPCS: 99153; G0500; J2250; J3010

== ENCOUNTER 2025-03-03 12:28 | Emergency (ER) | payer OTHER ==
[~2025-03-03] VITALS: Ht 188 cm; Wt 100.0 kg
[~2025-03-03 12:28] MED LIST changes: +IRON18 M1 PO; +IRON240 MG PO; -MIDAZOLAM HCL 5 MG/5 ML VIAL IV PRN; -fentaNYL citrate 100 MCG/2 ML VIAL IV PRN
[2025-03-03 17:32] VITALS: BP 132/78
== END 2025-03-03 17:32 | disposition home or self-care (01) ==
LOC: ED 12:28
DX: S01.312A Laceration without foreign body of left ear, initial encounter (principal); I10 Essential (primary) hypertension; E78.5 Hyperlipidemia, unspecified; Z87.891 Personal history of nicotine dependence; W22.8XXA Striking against or struck by other objects, initial encounter
CPT/HCPCS: 12011; 99282